=== PATIENT | female | born 1990 | race Caucasian/White ===

== ENCOUNTER 2020-01-23 22:48 | Emergency (ER) | payer SELFPAY ==
[2020-01-23 23:01] VITALS: BP 137/93; PULSE 89; RESP 18; TEMP 36.9; O2SAT 98; BMI 31.7
--- NOTE | 2020-01-23 23:16 | XR_ITS ---
WS: [id number] Chest 2 views, 01/24/2020 Clinical Data: cough Comparison: PA and lateral chest, 03/21/2015. Findings: No nodules, masses or effusions are seen. The heart is normal. The pulmonary vascularity is not increased. No pneumonia or pneumothorax is seen. XR/XR chest 2V* [id number] Impression: Negative chest.
--- NOTE | 2020-01-23 23:19 | ED_ITS ---
Entered by Mariah Mcginnis, acting as scribe for Lit Romero MD HPI - General Adult General: Chief complaint: General Medical Stated complaint: cough Time Seen by Provider: 01/23/20 23:09 Source: patient Mode of arrival: ambulatory History of Present Illness: HPI narrative: 29 y/o female presents to the ED for cough, sore throat and N/V. Pt states her daughter has been sick with the same symptoms for the past several days. She is concerned about having the Flu and would like to be tested. She has had intermittent fevers and chills and increasing lethargy. complaint: Cough, sore throat Onset (ago): day(s) Severity: mild Quality: aching Relieving factors: none Associated symptoms: Reports cough, fevers/chills and nausea; Deny chest pain, dyspnea or rash Review of Systems Const: Reports: chills and body aches; Denies: fever or change in appetite Eyes: Denies: blurry vision or eye discomfort ENMT: Reports: throat pain; Denies: dental pain Card: Denies: chest pain Resp: Denies: shortness of breath GI: Reports: nausea; Denies: abdominal pain or diarrhea : Denies: painful urination Musc: Denies: neck pain or back pain Skin/Breast: Denies: rash Psych: Denies: depression Diego/Lymph: Denies: easy bruising All/Imm: Denies: hives PFSH ED PFSH: Social History Smoking and tobacco status: current every day smoker Female Reproductive History: Date of last menstrual period: 12/25/19 Physical Exam Const: COMMON NORMALS: no apparent distress and oriented x3 HENMT: COMMON NORMALS: normocephalic and head/scalp atraumatic HEAD & SCALP: normocephalic and atraumatic Eye: COMMON NORMALS: PERRL and EOMs intact bilaterally PUPIL: Yes PERRL Neck/C-Spine: COMMON NORMALS: full ROM and supple Chest: COMMONS NORMALS: inspection of chest normal and palpation of chest normal Resp: COMMON NORMALS: normal respiratory effort, no retractions, no use of accessory muscles and clear to auscultation bilaterally AUSCULTATION: clear to auscultation bilaterally Cardio: COMMON NORMALS: regular rate, regular rhythm and no murmurs RATE: regular rate RHYTHM: regular rhythm GI: COMMON NORMALS: normal to inspection, nondistended, normoactive bowel sounds, soft to palpation, non-tender and no masses PALPATION: Yes soft Extremity: COMMON NORMALS: normal to inspection and full ROM Neuro: COMMON NORMALS: oriented x3, moves all extremities and no focal motor deficits Psych: COMMON NORMALS: mental status grossly normal, thought process normal and cooperative THOUGHT PROCESS: normal thought process Skin: COMMON NORMALS: no rashes or lesions noted and no wounds GENERAL SKIN EXAM: no rashes or lesions noted Course Vital Signs: Vital signs: Vital Signs Temperature 98.5 F 01/23/20 23:01 Pulse Rate 89 01/23/20 23:01 Respiratory Rate 18 01/23/20 23:01 Blood Pressure 137/93 01/23/20 23:01 Pulse Oximetry 98 01/23/20 23:01 MDM - General Adult MDM Narrative: Medical decision making narrative: Patient presents here with cough congestion sore throat that is likely viral in origin. Her x-ray here shows no pneumonia and her flu is negative. Exam is benign and she has no signs of strep. Patient is stable for discharge and is to follow-up with primary care doctor. Lab Data: Labs: Lab Results 01/23/20 Range/Units 23:03 Influenza Type A A g Negative (Negative) POC Influenza B Ag Negative (Negative) Imaging Data^: CXR: Attestation: I personally reviewed and interpreted this imaging study as follows: My impression: no acute abnormality Discharge Plan Discharge Patient Disposition: Home, Self-Care Clinical Impression: Upper respiratory infection Qualifiers: URI type: unspecified URI Qualified Code(s): J06.9 - Acute upper respiratory infection, unspecified Condition: Stable Discharge Orders: Discharge Order (Routine); Ordered 01/24/20 Ordered By: Lit Romero Referrals: Shlomo Taylor MD [Primary Care Provider] - 4-7 days Discharge Diet: Advance as tolerated Discharge Activity: Resume usual activity Patient Instructions: Upper Respiratory Infection (ED) Coding Level of Care Code ED Mosaic Technician for Chg Fwd Exam Comprehensive The documentation recorded by the Ras blackwell Ashley, accurately reflects the service I personally performed and the decisions made by ca, Lit Romero MD Jan 23, 2020 22:48
[2020-01-23 23:43] LABS: Influenza A by IFA Negative (Negative); Influenza B by IFA Negative (Negative)
[2020-01-24] MEDS: dexamethasone 10 mg/mL INJ IM (00:16)
== END 2020-01-24 00:40 | disposition home or self-care (01) ==
PROVIDERS: Nurse Practitioner Family; Emergency Provider Emergency Medicine; Family Provider Family Medicine; PCP Family Medicine
DX: J06.9 Acute upper respiratory infection, unspecified (principal); F17.200 Nicotine dependence, unspecified, uncomplicated
CPT/HCPCS: 12345; 71046; 87804; 96372; 99281; 99283; J1100

== ENCOUNTER 2021-09-10 20:59 | Emergency (ER) | payer MEDICAID, SELFPAY ==
[2021-09-10 21:10] VITALS: BP 107/64; PULSE 97; RESP 18; TEMP 36.2; O2SAT 98; BMI 32.5
--- NOTE | 2021-09-10 21:20 | ED_ITS ---
Documented by User: JODI Valencia 09/10/21 23:54 HPI - Extremity Problem General: Chief complaint: Extremity Injury, Lower Stated complaint: Injury Left leg Time Seen by Provider: 09/10/21 21:20 History of Present Illness: HPI Narrative: 31-year-old female comes in today with injury to the left ankle. Patient was rollerskating and injured her left ankle. Ankle has some bruising to the medial aspect of the malleus, pulses are intact, sensation is intact. Review of Systems General: Reports: 10 or more systems reviewed and unremarkable except in HPI and below Musc: Reports: other (Left ankle injury.) [facility] ED PFSH: Social History Smoking and tobacco status: current every day smoker Female Reproductive History: Date of last menstrual period: 12/25/19 Physical Exam Const: COMMON NORMALS: no acute distress and patient oriented x3 GENERAL APPEARANCE: cooperative HENMT: COMMON NORMALS: normocephalic and Normal external nose present HEAD & SCALP: normal to inspection and normocephalic NOSE: Normal external nose present MOUTH: Normal oral and palatal mucosa present Eye: GENERAL EYE: appearance normal, both eyes and all related structures Neck/C-Spine: COMMON NORMALS: full ROM Chest: COMMONS NORMALS: normal inspection of the chest Resp: COMMON NORMALS: normal respiratory effort EFFORT & INSPECTION: Yes able to speak in complete sentences Cardio: COMMON NORMALS: regular rate and regular rhythm RATE: regular rate RHYTHM: regular rhythm GI: COMMON NORMALS: non-tender Back/Pelvis: COMMON NORMALS: thoracic and lumbar spine normal to inspection Extremity: NARRATIVE EXTREMITY EXAM: Deformity noted to the left medial malleus of the ankle. Pulses are intact. Bruising is noted. Neuro: COMMON NORMALS: patient oriented x3 and moves all extremities Psych: COMMON NORMALS: mental status grossly normal and cooperative Skin: COMMON NORMALS: no rashes or lesions noted GENERAL SKIN EXAM: no rashes or lesions noted Procedures Orthopedic Fracture Reduction Fracture #1: Time Out Performed: Yes Side: left Fracture Reduction Location: tibia Analgesia: procedural sedation Technique: direct manipulation Post Reduction X-rays Demonstrate: anatomical reduction Post-reduction neuro exam: intact Post-reduction vascular exam: intact Splint Applied: Yes Patient Tolerated Procedure: well Course ED course: 2344, under conscious sedation patient's left ankle joint was manipulated and reduced successfully. Dr. Renteria was present during the conscious sedation and reduction of the joint. Vital Signs: Vital signs: Vital Signs Temperature 97.1 F L 09/10/21 21:10 Pulse Rate 90 09/10/21 23:45 Respiratory Rate 16 09/10/21 23:45 Blood Pressure 122/64 09/10/21 23:45 Pulse Oximetry 97 09/10/21 23:45 MDM - Extremity (Nontraumatic) MDM Narrative: Medical decision making narrative: Patient comes in today with injury to the left ankle. On exam patient has a deformity to the left ankle on the medial side. Pulses are intact sensation is intact. Differential diagnosis includes fracture, dislocation, swelling, sprain. X-ray noted a fracture of the posterior tibia, distal fibula with subluxation of the tibiotalar joint. Reviewed exam with Dr. Renteria who agreed to plan for reduction of the joint, splinting of the extremity and follow-up with orthopedist. We were able to reduce the joint with minimal effort under conscious sedation. Repeat x-ray noted reduction of the joint. Patient had significant improvement of pain control after reduction of the joint. Neurovascular remained intact. Case management was consulted for follow-up with orthopedist. Patient reported understanding of care plan along with spouse. Discharge Plan Discharge Patient Disposition: Home Clinical Impression: Fracture tibia/fibula Qualifiers: Encounter type: initial encounter Fracture type: closed Laterality: left Qualified Code(s): S82.202A - Unspecified fracture of shaft of left tibia, initial encounter for closed fracture Condition: Stable Prescriptions: New hydrocodone-acetaminophen 5-325 mg tablet 1 tab PO Q6H PRN (Reason: pain (scale score 7-10)) Qty: 14 RF: 0 Discharge Orders: Discharge ED (Routine); Ordered 09/10/21 Ordered By: Kiran Mayer Referrals: Shlomo Taylor MD [Primary Care Provider] - Discharge Diet: Usual diet Discharge Activity: Increase activity as tolerated Patient Instructions: Ankle Fracture (ED), Opioid Safety Activity Restrictions/Additional Instructions: Keep splint clean and dry. Use acetaminophen and ibuprofen to control pain. Use hydrocodone as needed for uncontrolled pain. Follow-up with orthopedist for further treatment. Case management will contact you with the appointment for follow-up. Follow-up with primary care as needed. Coding Level of Care Code ED Websphere Portal Architect for Chg Fwd Exam Comprehensive Documented by User: Wagner Renteria, 09/11/21 02:52 HPI - Extremity Problem General: Chief complaint: Extremity Injury, Lower Stated complaint: Injury Left leg Time Seen by Provider: 09/10/21 21:20 PFSH ED PFSH: Social History Smoking and tobacco status: current every day smoker Course Vital Signs: Vital signs: Vital Signs Temperature 97.1 F L 09/10/21 21:10 Pulse Rate 90 09/10/21 23:45 Respiratory Rate 16 09/10/21 23:45 Blood Pressure 122/64 09/10/21 23:45 Pulse Oximetry 97 09/10/21 23:45 MDM - Extremity (Nontraumatic) MDM Narrative: Medical decision making narrative: This patient was originally seen by JODI Bennett. I agree with his history, evaluation, and treatment. Discharge Plan Discharge Patient Disposition: Home Clinical Impression: Fracture tibia/fibula Qualifiers: Encounter type: initial encounter Fracture type: closed Laterality: left Qualified Code(s): S82.202A - Unspecified fracture of shaft of left tibia, initial encounter for closed fracture Condition: Stable Prescriptions: New hydrocodone-acetaminophen 5-325 mg tablet 1 tab PO Q6H PRN (Reason: pain (scale score 7-10)) Qty: 14 RF: 0 Discharge Orders: Discharge ED (Routine); Ordered 09/10/21 Ordered By: Kiran Mayer Referrals: Shlomo Taylor MD [Primary Care Provider] - Discharge Diet: Usual diet Discharge Activity: Increase activity as tolerated Patient Instructions: Ankle Fracture (ED), Opioid Safety Activity Restrictions/Additional Instructions: Keep splint clean and dry. Use acetaminophen and ibuprofen to control pain. Use hydrocodone as needed for uncontrolled pain. Follow-up with orthopedist for further treatment. Case management will contact you with the appointment for follow-up. Follow-up with primary care as needed. Coding Level of Care Code ED Websphere Portal Architect for Angle Fwtaj Exam Comprehensive
--- NOTE | 2021-09-10 21:22 | XRR_ITS ---
PROCEDURE INFORMATION: Exam: XR Left Ankle Exam date and time: 09/10/2021 9:22 PM Age: 31 years old Clinical indication: Injury or trauma; Blunt trauma; Ankle; Left; Injury details: Fall while roller skating TECHNIQUE: Imaging protocol: XR Left ankle. Views: 3 or more views. COMPARISON: No relevant prior studies available. FINDINGS: Bones/joints: There is short oblique fracture of the distal shaft of the left fibula with some lateral displacement and posterior angulation. There is widening of the tibiofibular joint. The talus is slightly displaced posteriorly and laterally. There is comminuted fracture involving the posterior and lateral aspect of the distal tibia probably also involving the tibial plafond and. Talar dome is intact. Soft tissues: Normal. XR/XR ankle LT min 3V* [id number] IMPRESSION: Fractures of the distal left tibia and fibula with posterolateral subluxation of the tibial talar joint. Radiation Dose CTDIVOL = (mGy): DLP = (mGy-cm)
--- NOTE | 2021-09-10 21:22 | XRR_ITS ---
PROCEDURE INFORMATION: Exam: XR Left Tibia and Fibula Exam date and time: 09/10/2021 9:22 PM Age: 31 years old Clinical indication: Injury or trauma; Blunt trauma; Lower leg; Left; Injury details: Fall while roller skating. ; Additional info: Ankle fracture TECHNIQUE: Imaging protocol: XR Left tibia and fibula. Views: 2 views. COMPARISON: No relevant prior studies available. FINDINGS: Bones/joints: There is short oblique fracture through the middle of the distal 3rd of the left fibula with mild lateral displacement. There is what appears to be a pilon type fracture of the distal tibia not fully imaged on these views with some dorsal and lateral subluxation of the talus and widening of the distal tibiofibular joint. Please see the report of views of the ankle which are pending at this time. Soft tissues: Swelling XR/XR tibia fibula LT 2V [id number] IMPRESSION: Fractures of the distal left tibia and fibula. Radiation Dose CTDIVOL = (mGy): DLP = (mGy-cm)
[2021-09-10 21:29] VITALS: PULSE 78
[2021-09-10] MEDS: sodium chloride 0.9% 500 ML 999 ML IV (21:38)
[2021-09-10] MEDS: ondansetron 2 mg/ML SDV 2 mL 4 MG IVP ×2 (21:38→23:11)
[2021-09-10] MEDS: ketorolac 30 mg/mL INJ 15 MG IVP (21:39)
[2021-09-10 21:40] VITALS: RESP 20; O2SAT 99
[2021-09-10] MEDS: morphine 4 mg/mL SDV 1 mL IVP (21:40)
[2021-09-10] MEDS: midazolam 1 mg/mL INJ 2 mL 2 MG IVP (23:13)
[2021-09-10 23:20] VITALS: BP 137/75; PULSE 84; RESP 18; O2SAT 98
[2021-09-10 23:28] VITALS: BP 131/77; PULSE 71; RESP 16
--- NOTE | 2021-09-10 23:32 | XRR_ITS ---
PROCEDURE INFORMATION: Exam: XR Left Ankle Exam date and time: 09/10/2021 11:32 PM Age: 31 years old Clinical indication: Injury or trauma; Fall; Fracture, traumatic; Displaced; Fibula and tibia; Left; Patient HX: Check S/P reduction. ; Additional info: Post reduction TECHNIQUE: Imaging protocol: XR Left ankle. Views: 1 or 2 views. COMPARISON: CR (LOW EXM, ) 09/10/2021 9:30 PM FINDINGS: Limitations: Examination is made through a semi opaque splint which obscures fine bone detail. Bones/joints: Fractures of the distal left tibia and fibular again identified. There is improved position and alignment of the bones compared with the previous examination. Subluxation of the talus has been reduced. Soft tissues: Normal. XR/XR ankle LT 2V [id number] IMPRESSION: Fractures of the distal left tibia and fibula in splint. Radiation Dose CTDIVOL = (mGy): DLP = (mGy-cm)
[2021-09-10 23:45] VITALS: BP 122/64; PULSE 90; RESP 16; O2SAT 97
[2021-09-10] MEDS: HYDROcodone-acetaminophen 5-325 mg Tablet 2 TAB PO (23:55)
--- NOTE | 2021-09-13 09:07 | DCPLANNER ---
manager of tax had message to schedule a follow up appointment for patient with ortho. manager of tax called the ortho clinic, spoke with Alysha, gave clinic patients information. manager of tax was told that patients information would be printed and reviewed. Clinic will call patient with appointment information.
--- NOTE | 2021-09-16 15:22 | DCPLANNER ---
Patient had a follow up appointment scheduled for 09.15.[address] Ortez at [facility] - patient did attend appointment.
== END 2021-09-11 00:01 | disposition home or self-care (01) ==
PROVIDERS: Emergency Provider Nurse Practitioner Family; PCP Family Medicine
DX: S82.845A Nondisplaced bimalleolar fracture of left lower leg, initial encounter for closed fracture (principal); F17.210 Nicotine dependence, cigarettes, uncomplicated; X58.XXXA Exposure to other specified factors, initial encounter; Y93.51 Activity, roller skating (inline) and skateboarding
CPT/HCPCS: 27810; 73590; 73600; 73610; 96374; 96375; 96376; 99284; E0114; J1885; J2250; J2270; J2405; J3490; J7040

== ENCOUNTER → 2021-09-15 00:01 | Outpatient (BNVA) | payer MEDICAID, SELFPAY | PROVIDERS: PCP Family Medicine; Visit Provider Podiatrist Foot & Ankle Surgery | DX: Z20.822 Contact with and (suspected) exposure to COVID-19 (principal) | CPT/HCPCS: 87635 ==

== ENCOUNTER 2021-09-17 08:42 | Day surgery (SDC) | payer MEDICAID, SELFPAY ==
[2021-09-16 16:00] VITALS: BMI 30.9
[2021-09-17] VITALS (11 sets, daily range): BP systolic 111–143; BP diastolic 72–86; PULSE 70–103; RESP 14–21; TEMP 36.3–36.6; O2SAT 93–100
--- NOTE | 2021-09-17 | SCC_ITS ---
Procedure Done: Open reduction internal fixation left trimalleolar Ankle fracture CPT code 39449 33 seconds of fluoroscopic guidance, for a cumulative dose of 0.797 mGy, was provided to Dr. Ortez by the radiology department. C-arm images of the left ankle were saved for the patient's permanent record. [facility]
--- NOTE | 2021-09-17 09:56 | ANES.PREANE2 ---
Pre-Anesthetic Assessment Pre-Anesthetic Assessment: Height/Weight: Height 1.63 m Weight 81.647 kg Temp Pulse Resp BP Pulse Ox 97.4 F L 82 17 143/86 100 09/17/21 08:55 09/17/21 08:55 09/17/21 08:55 09/17/21 08:55 09/17/21 08:55 Preop Diagnosis: Left trimalleolar ankle fracture Proposed Procedure: Operation Date: 09/17/21 10:30 Proposed Procedures p ORIF trimalleolar Ankle 35976 S82.852B(Left) - Osmel Ortez DPM Familial anesthetic complications: None Was Beta Miky taken within 24 hours: N/A Was Clonidine taken within 24 hours: N/A Last intake: Intake Last Liquid Date 09/16/21 Last Liquid Time 22:00 Last Solid Date 09/16/21 Last Solid Time 20:00 Social: Social History: No alcohol and No tobacco Exam: Pre-Anes Outpt Exam: alert, oriented x 3, clear to auscultation bilaterally and regular rate & rhythm Airway: Cervical ROM: WNL MP: 2 Dentition: Full Pulmonary: Comments: covid in early august, states no residual symptoms. Illness was mild per patient Anesthetic Plan: ASA status: 2 Anesthesia: General and Regional (specify below) Risk of > 500 ml blood loss (7ml/kg in children): No PFSH Anesthesia PFSH: Social History Smoking and tobacco status: former smoker Female Reproductive History: Date of last menstrual period: 12/25/19 Data Anesthesia Cardiac Studies: No Data to Display
--- NOTE | 2021-09-17 09:57 | ANES.PROC ---
Anesthesia Procedures Procedure/Date: 09/17/21 Nerve Block ^: Nerve Block 1: Main Anesthesia: general anesthesia Consent: requested by attending/covering physician, from patient, risks and benefits reviewed and patient agrees to proceed Nerve block location: popliteal (R) Anesthesia monitors applied: pulse oximetry, EKG, BP cuff and oxygen Nerve block position: supine Anesthetic Used: ropivicaine 0.5% and with decadron Amount of anesthesia used (mL): 30 Ultrasound used to: recognize landmarks Nerve Stimulator Used?: No Interscalene/Femoral BLK: 4 stimuplex 21 g needle used for position and inplane approach, visualize local anesthetic spread and no vascular puncture identified Injection: neg aspiration of heme Patient Tolerated Procedure: well Complications: none
--- NOTE | 2021-09-17 10:32 | P.HPUD_ITS ---
Surgery/Procedure H&P Update DATE OF PROCEDURE: September 17, 2021 DATE H&P PERFORMED: 09/15/21 H&P UPDATE INFORMATION: I have reviewed H&P completed within last 30 days, I have examined patient prior to procedure, No changes to prior documentation and H&P is in [facility] EMR on date indicated PREOP DIAGNOSIS: Left trimalleolar ankle fracture PLANNED PROCEDURE: Operation Date: 09/17/21 10:30 Proposed Procedures p ORIF trimalleolar Ankle 81076 S82.852B(Left) - Osmel Ortez DPM
[2021-09-17 11:05] LABS: OR HCG Qualitative Urine Negative (Negative)
--- NOTE | 2021-09-17 12:22 | XR_ITS ---
WS: [id number] Left ankle, 3 views, 09/17/2021 Clinical Data: post op Comparison: Right ankle, 09/10/2021. Findings: There is internal fixation with a plate and screws with fracture of the distal left fibula. There are radiolucent bands extending from the fibula to the tibia aiding in the reduction of the fra cture of the posterior tibia. XR/XR ankle LT min 3V* [id number] Impression: Internal fixation of fractures of distal left tibia and fibula.
--- NOTE | 2021-09-17 12:27 | PM.OP ---
Operative Report Date of procedure: September 17, 2021 Pre-op Diagnosis: Left trimalleolar ankle fracture Post-op diagnosis: same Post-op Findings: None Procedure Done: Open reduction internal fixation left trimalleolar Ankle fracture CPT code 94126 Implants: Bina one third tubular plate, Bina 3.5 mm locking and nonlocking screws, Arthrex tight rope XP x2, 2-0 Vicryl, 3-0 Vicryl, skin pablo. Specimens removed/disposition: None Pathology: none sent Surgeon: Osmel Ortez D.P.M. Clinical Trial Data Manager: Harish Anesthesia: General Estimated blood loss: 10 Tourniquet time: 52 IV fluids: 0 Urine output: 0 Complications: None Findings: Anatomically reduced left ankle Condition: stable Disposition: PACU Brief History: Patient sustained a left trimalleolar ankle fracture equivalent with displacement of the talus laterally, Brice Espinoza B fracture and posterior mall fracture. Recommended open reduction internal fixation of the left ankle fracture. Risks include pain, bleeding, numbness, infection, hardware irritation, hardware failure, delayed union, malunion, nonunion, chronic swelling, high likelihood of posttraumatic arthritis and decreased range of motion in the future and need for further surgical intervention. Procedure: Under mild sedation the patient was brought to the operating room and placed on the operating table in supine position. A popliteal block to the left lower extremity performed per anesthesia preoperatively. Timeout was performed and general anesthesia was then administered by the anesthesia service. Local anesthesia injected by myself 10 cc of 0.5 to Marcaine plain and a saphenous nerve block fashion. Well-padded pneumatic tourniquet applied high calf to the left lower extremity. Left lower extremity was then scrubbed, prepped and draped utilizing normal aseptic technique. This was wrapped with an Esmarch bandage and a tourniquet inflated to 250 mmHg. Attention was directed to the left lateral ankle where the lateral malleolus was palpated directly over the lateral malleolus a linear longitudinal incision was made with #15 blade with dissection carried down to the layer of periosteum utilizing a combination of blunt and sharp technique. Care was taken to retract and preserve neurovascular and tendinous structures. All bleeders were ligated and cauterized as necessary. Fibular fracture was distracted and curettage of hematoma this was flushed with saline solution followed by reduction and temporary stabilization with [id number] reduction forceps. Fibula was out to length and ankle mortise congruent confirmed on intraoperative fluoroscopy. One third tubular plate with a combination of locking and nonlocking screws utilizing standard AO technique for fixation of the fibula fracture maintaining anatomic reduction. Excellent bony apposition and compression noted. No hardware violating the ankle mortise confirmed with fluoroscopy in all 3 planes. Once the fibula was out to length and the rotated into reduction the ankle mortise was congruent and the posterior malleolus fracture was reduced. There is still instability at the syndesmosis with cotton hook test this was fixated utilizing dual tight rope for dynamic internal fixation. Tight rope was Arthrex XP x2. Range of motion was smooth with approximately 10 degrees of dorsiflexion intraoperatively and 45 degrees of plantarflexion without crepitus. Final imaging confirmed anatomic alignment of the left ankle. Incision was flushed with copious amounts of sterile saline solution and closed in a layered fashion utilizing 2-0 Vicryl periosteum, 3-0 Vicryl subcutaneous tissue and skin pablo at. Incision was then dressed with Adaptic, sterile 4 x 4, Kerlix, Mumtaz wrap and cam boot was applied. Tourniquet was deflated and a prompt hyperemic response was noted to the distal digits of the left foot. Patient tolerated the procedure well and was transferred to the PACU with vital signs stable vascular status intact. Following a period of postoperative monitoring she will be discharged home is to remain strict nonweightbearing to the left lower extremity was prescribed Percocet 10/325 mg to be taken every 4-6 hours as needed for pain. Will be following up in podiatry clinic next week for nurse visit dressing change 09/24/2021. Was given my cell phone number to contact me with any postoperative questions or concerns.
[2021-09-17] MEDS: fentaNYL 50 mcg/mL INJ 2mL IVP ×2 (12:29→12:34)
[2021-09-17] MEDS: ondansetron 2 mg/ML SDV 2 mL 4 MG IVP ×2 (12:32→13:13)
[2021-09-17] MEDS: metoclopramide 5 mg/mL SDV 2 mL 10 MG IVP (13:31)
--- NOTE | 2021-09-17 13:43 | SUR.PHASEI ---
Patient struggling with nausea. Two medications used for treatment in addition to changing from water to sprite. Patient is tolerating sprite and crackers at this time.
[2021-09-17] MEDS: sodium chloride 0.9% 1,000 ML 30 ML IV (13:55)
--- NOTE | 2021-09-17 17:22 | ANE.PACU2 ---
Inpatient post-anesthesia follow up: Airway intact: Yes Vital signs: Temperature 97.9 F Pulse Rate 80 Respiratory Rate 15 Blood Pressure 112/76 Pulse Oximetry 96 Oxygen Delivery Me thod Room Air Oxygen Flow Rate 8 Fraction of Inspir ed Oxygen Hydration adequate: Yes Nausea and vomiting: No Pain level: 1 Mental status: Baseline
== END 2021-09-17 14:02 | disposition home or self-care (01) ==
PROVIDERS: PCP Family Medicine; Visit Provider Podiatrist Foot & Ankle Surgery
PROC: (CPT 27822; principal; 2021-09-17 10:20)
DX: S82.852A Displaced trimalleolar fracture of left lower leg, initial encounter for closed fracture (principal); X50.1XXA Overexertion from prolonged static or awkward postures, initial encounter; Y93.51 Activity, roller skating (inline) and skateboarding; Y92.838 Other recreation area as the place of occurrence of the external cause; Z87.891 Personal history of nicotine dependence
CPT/HCPCS: 27822; 64450; 73610; 76000; 76942; 84703; 96372; C1713; J0690; J1100; J2250; J2405; J2704; J2710; J2765; J2795; J3010; J3490; J7030

== ENCOUNTER → 2021-09-30 14:47 | Outpatient (BNVA) | payer MEDICAID, SELFPAY | PROVIDERS: PCP Family Medicine; Visit Provider Podiatrist Foot & Ankle Surgery | DX: Z47.89 Encounter for other orthopedic aftercare (principal); S82.832D Other fracture of upper and lower end of left fibula, subsequent encounter for closed fracture with routine healing; X58.XXXD Exposure to other specified factors, subsequent encounter | CPT/HCPCS: 73610 ==

== ENCOUNTER → 2021-10-14 11:22 | Outpatient (BNVA) | payer MEDICAID, SELFPAY | PROVIDERS: PCP Family Medicine; Visit Provider Podiatrist Foot & Ankle Surgery | DX: Z47.89 Encounter for other orthopedic aftercare (principal); S82.852D Displaced trimalleolar fracture of left lower leg, subsequent encounter for closed fracture with routine healing; V00.128D Other non-in-line roller-skating accident, subsequent encounter | CPT/HCPCS: 73610 ==

== ENCOUNTER → 2021-10-25 15:43 | Outpatient (BNVA) | payer MEDICAID, SELFPAY | PROVIDERS: PCP Family Medicine; Visit Provider Podiatrist Foot & Ankle Surgery | DX: Z47.89 Encounter for other orthopedic aftercare (principal) | CPT/HCPCS: 73610 ==

== ENCOUNTER → 2021-11-17 09:05 | Outpatient (BNVA) | payer MEDICAID, SELFPAY | PROVIDERS: PCP Family Medicine; Visit Provider Podiatrist Foot & Ankle Surgery | DX: Z98.890 Other specified postprocedural states (principal) | CPT/HCPCS: 73610 ==

== ENCOUNTER 2021-11-17 10:31 | Outpatient (CLI) | payer MEDICAID, SELFPAY | END 2021-11-17 10:32 | disposition home or self-care (01) | LOC: SPT 10:33 | PROVIDERS: PCP Family Medicine; Visit Provider Podiatrist Foot & Ankle Surgery | DX: Z47.89 Encounter for other orthopedic aftercare (principal) | CPT/HCPCS: 97760; L1902 ==

== ENCOUNTER → 2021-12-22 08:00 | Outpatient (BNVA) | payer MEDICAID, SELFPAY | PROVIDERS: PCP Family Medicine; Visit Provider Podiatrist Foot & Ankle Surgery | DX: Z98.890 Other specified postprocedural states (principal) | CPT/HCPCS: 73610 ==

== ENCOUNTER 2022-09-04 14:18 | Emergency (ER) | payer MEDICAID, SELFPAY ==
[2022-09-04 14:31] VITALS: BMI 34.0
[2022-09-04 14:37] VITALS: BP 137/74; PULSE 82; RESP 18; TEMP 36.4; O2SAT 98
--- NOTE | 2022-09-04 15:37 | ED_ITS ---
HPI - Female Genitourinary General: Chief complaint: Vaginal Bleeding Stated complaint: Vaginal bleeding for 3 weeks Time Seen by Provider: 09/04/22 15:17 History of Present Illness: This patient is a 32-year-old presenting with vaginal bleeding. She reports a history of very heavy periods and her doctor recommended a Nexplanon implant to help control these heavy periods. She had the Nexplanon implant placed on August 04. On August 18 she started spotting and about a week later started having heavy bleeding. The bleeding has progressively worsened over the past 2 weeks and she is now passing clots and going through a pad every hour. She has a history of anemia which has been because of her heavy bleeding. She denies any other vaginal discharge or lesions. She does have cramping typical of a heavy period. Her last period was around 27 July. She denies fevers, chills, vomiting, diarrhea, urinary symptoms. She has been feeling lightheaded and weak. Associated symptoms: Deny abdominal pain, headache(s) or nausea Date of Last Menstrual Period: 12/25/19 Review of Systems Const: Denies: fever(s), chills, fatigue or malaise Eyes: Denies: change in vision ENMT: Denies: odynophagia Card: Denies: chest pain or swelling of feet/ankles Resp: Denies: dyspnea, productive cough or non-productive cough GI: Denies: abdominal pain, nausea or vomiting : Reports: vaginal bleeding, dysmenorrhea and change in menstrual flow Musc: Denies: neck pain or back pain Skin/Breast: Denies: rash Neuro: Reports: dizziness; Denies: headache(s), numbness in extremities or weakness in extremities Diego/Lymph: Denies: easy bruising or easy bleeding PFS ED PFSH: Social History Smoking and tobacco status: former smoker Female Reproductive History: Date of last menstrual period: 12/25/19 Physical Exam Const: COMMON NORMALS: no acute distress, patient oriented x3, no limitations and alert GENERAL APPEARANCE: cooperative and comfortable HENMT: HEAD & SCALP: normal to inspection FACE & SINUS: normal facial exam Eye: GENERAL EYE: appearance normal, both eyes and all related structures Neck/C-Spine: COMMON NORMALS: supple, no meningeal signs and no JVD Chest: COMMONS NORMALS: normal inspection of the chest Resp: COMMON NORMALS: normal respiratory effort, No use of accessory muscles and clear to auscultation bilaterally AUSCULTATION: clear to auscultation bilaterally Cardio: COMMON NORMALS: no JVD, regular rate, regular rhythm and No murmurs present (Cardio) RATE: regular rate RHYTHM: regular rhythm GI: COMMON NORMALS: Normal to inspection, nondistended, normoactive bowel sounds present, Soft to palpation and non-tender INSPECTION: Yes normal to inspection AUSCULTATION: Yes normoactive bowel sounds PALPATION: Yes Soft to palpation and Yes Tenderness to palpation present (GI) (Mild, suprapubic) Back/Pelvis: COMMON NORMALS: thoracic and lumbar spine normal to inspection Extremity: COMMON NORMALS: normal to inspection Neuro: COMMON NORMALS: patient oriented x3, moves all extremities, no focal motor deficits and no sensory deficits noted SENSORIUM/ORIENTATION: Yes alert MENINGEAL SIGNS: Yes no meningeal signs Psych: COMMON NORMALS: mental status grossly normal, cooperative and normal affect Skin: COMMON NORMALS: no rashes or lesions noted and turgor normal GENERAL SKIN EXAM: no rashes or lesions noted and turgor normal Course Vital Signs: Vital signs: Vital Signs Temperature 97.6 F 09/04/22 14:37 Pulse Rate 82 09/04/22 14:37 Respiratory Rate 18 09/04/22 14:37 Blood Pressure 137/74 09/04/22 14:37 Pulse Oximetry 98 09/04/22 14:37 Oxygen Delivery Me thod 09/04/22 14:37 MDM - Female Medical Decision Making Patient with history of heavy vaginal bleeding with her periods. Presents today with worsening symptoms after having a Nexplanon placed a month ago. She symptomatic with lightheadedness and fatigue. Blood counts pending. test negative. Hemoglobin normal. CO2 is slightly low but other labs are completely normal. Counseled patient. She is feeling better knowing that the blood counts are normal. She will follow-up with Dr. Taylor tomorrow. Lab Data : 09/04/22 15:44 09/04/22 15:44 Laboratory Results WBC 8.7 10^3/uL (4.0-10.0) 09/04/22 15:44 RBC 5.09 10^6/uL (4.1-5.3) 09/04/22 15:44 Hgb 12.5 g/dL (11.5-15.3) 09/04/22 15:44 Hct 40.5 % (37.0-47.0) 09/04/22 15:44 MCV 79.6 fl (81-99) L 09/04/22 15:44 MCH 24.6 pg (28.0-34.0) L 09/04/22 15:44 MCHC 30.9 g/dL (30.0-36.0) 09/04/22 15:44 RDW 22.0 % (12.1-15.1) H 09/04/22 15:44 Plt Count 333 10^3/cmm (130-400) 09/04/22 15:44 MPV 10.4 fL (7.4-10.4) 09/04/22 15:44 Neut % (Auto) 61.8 % 09/04/22 15:44 Lymph % (Auto) 26.9 % 09/04/22 15:44 [place] % (Auto) 7.6 % 09/04/22 15:44 Eos % (Auto) 2.6 % 09/04/22 15:44 Baso % (Auto) 0.8 % 09/04/22 15:44 Neut # (Auto) 5.38 10^3/uL (1.8-7.7) 09/04/22 15:44 Lymph # (Auto) 2.4 10^3/uL (0.8-4.8) 09/04/22 15:44 [place] # (Auto) 0.7 10^3/uL (0.2-0.9) 09/04/22 15:44 Eos # (Auto) 0.2 10^3/uL (0.0-0.8) 09/04/22 15:44 Baso # (Auto) 0.1 10^3/uL (0.0-0.1) 09/04/22 15:44 Nucleated RBC % (auto) 0 % 09/04/22 15:44 Nucleated RBCs # 0.0 /100WBC 09/04/22 15:44 Sodium 133 mmol/L (136-145) L 09/04/22 15:44 Potassium 4.1 mmol/L (3.5-5.1) 09/04/22 15:44 Chloride 105 mmol/L (98-107) 09/04/22 15:44 Carbon Dioxide 17 mmol/L (22-29) L 09/04/22 15:44 Anion Gap 15.1 (5-19) 09/04/22 15:44 BUN 9 mg/dL (6-20) 09/04/22 15:44 Creatinine 0.6 mg/dL (0.5-0.9) 09/04/22 15:44 GFR Calculation 115.9 mL/min (90-130) 09/04/22 15:44 Glucose 81 mg/dL (65-115) 09/04/22 15:44 Calculated Osmolality 274 mOsm/kg (285-295) L 09/04/22 15:44 Calcium 8.7 mg/dL (8.5-10.5) 09/04/22 15:44 Total Bilirubin 0.3 mg/dL (0.15-1.2) 09/04/22 15:44 AST 22 U/L (0-32) 09/04/22 15:44 ALT 21 U/L (0-33) 09/04/22 15:44 Alkaline Phosphatase 63 U/L (35-105) 09/04/22 15:44 Total Protein 6.5 g/dL (6.6-8.7) L 09/04/22 15:44 Albumin 3.7 g/dL (3.5-5.2) 09/04/22 15:44 Globulin 2.8 g/dL (1.3-4.6) 09/04/22 15:44 Ser , Semi-Qnt < 1.00 mIU/mL 09/04/22 15:44 Discharge Plan Discharge Patient Disposition: Home Clinical Impression: Dysfunctional uterine bleeding Condition: Stable Prescriptions: No Action (DME) ASO to the left ankle See Rx Instructions .Route .MEDSUPPLY Qty: 1 0RF Rx Instructions: As directed mupirocin 2 % ointment 1 applic topical TID Qty: 15 0RF aspirin 81 mg Tablet,Delayed Release (Dr/Ec) 81 mg PO DAILY Discharge Orders: Discharge ED (Routine); Ordered 09/04/22 Ordered By: Iesha Ramírez Referrals: Shlomo Taylor MD [Primary Care Provider] - Discharge Diet: Usual diet Discharge Activity: Resume usual activity Patient Instructions: Opioid Safety, Pain Management Activity Restrictions/Additional Instructions: Call Dr. Taylor tomorrow to discuss your ongoing symptoms. Return to the ER if worsening lightheadedness, shortness of breath or any other new concerns. Coding Level of Care Code ED Food And Beverage Director for [facility] Exam Comprehensive
[2022-09-04 16:09] LABS: Basophils # 0.1 10^3/uL (0.0-0.1); Basophils % 0.8 %; Eosinophils # 0.2 10^3/uL (0.0-0.8); Eosinophils % 2.6 %; Hematocrit 40.5 % (37.0-47.0); Hemoglobin 12.5 g/dL (11.5-15.3); Lymphocytes # 2.4 10^3/uL (0.8-4.8); Lymphocytes % 26.9 %; Mean Corpuscular HGB Conc 30.9 g/dL (30.0-36.0); Mean Corpuscular Hemoglobin 24.6 pg (28.0-34.0); Mean Corpuscular Volume 79.6 fl (81-99); Mean Platelet Volume 10.4 fL (7.4-10.4); Monocytes # 0.7 10^3/uL (0.2-0.9); Monocytes % 7.6 %; Neutrophils # 5.38 10^3/uL (1.8-7.7); Neutrophils % 61.8 %; Nucleated Red Blood Cells % 0 %; Platelet Count 333 10^3/cmm (130-400); Red Blood Count 5.09 10^6/uL (4.1-5.3); White Blood Count 8.7 10^3/uL (4.0-10.0)
[2022-09-04 16:34] LABS: Alanine Aminotransferase 21 U/L (0-33); Albumin Level 3.7 g/dL (3.5-5.2); Alkaline Phosphatase 63 U/L (35-105); Aspartate Amino Transferase 22 U/L (0-32); Blood Urea Nitrogen 9 mg/dL (6-20); Calcium 8.7 mg/dL (8.5-10.5); Carbon Dioxide 17 mmol/L (22-29); Chloride 105 mmol/L (98-107); Globulin 2.8 g/dL (1.3-4.6); Glomerular Filtration Rate 115.9 mL/min (90-130); Glucose 81 mg/dL (65-115); Osmolality Calculated 274 mOsm/kg (285-295); Sodium 133 mmol/L (136-145); Total Bilirubin 0.3 mg/dL (0.15-1.2); Total Protein 6.5 g/dL (6.6-8.7)
[2022-09-04 16:45] LABS: Anion Gap 15.1 (5-19)
[2022-09-04 16:46] LABS: HCG Quantitative < 1.00 mIU/mL; Potassium 4.1 mmol/L (3.5-5.1)
[2022-09-04 17:53] VITALS: BP 133/78; PULSE 82; RESP 16; O2SAT 95
== END 2022-09-04 17:54 | disposition home or self-care (01) ==
PROVIDERS: Emergency Provider Emergency Medicine; PCP Family Medicine
DX: N93.8 Other specified abnormal uterine and vaginal bleeding (principal); Z79.82 Long term (current) use of aspirin; Z87.891 Personal history of nicotine dependence
CPT/HCPCS: 36415; 80053; 84702; 85025; 99283

== ENCOUNTER → 2023-07-31 09:37 | Outpatient (BNVA) | payer MEDICAID, SELFPAY | PROVIDERS: PCP Family Medicine; Visit Provider Nurse Practitioner Family | DX: J30.2 Other seasonal allergic rhinitis (principal) | CPT/HCPCS: 87486; 87581; 87633 ==

== ENCOUNTER → 2023-10-27 11:05 | Outpatient (BNVA) | payer MEDICAID, SELFPAY | PROVIDERS: PCP Family Medicine; Visit Provider Nurse Practitioner Family | DX: J32.0 Chronic maxillary sinusitis (principal); R50.9 Fever, unspecified; J02.9 Acute pharyngitis, unspecified; R05.9 Cough, unspecified; J02.8 Acute pharyngitis due to other specified organisms; B96.89 Other specified bacterial agents as the cause of diseases classified elsewhere; J06.9 Acute upper respiratory infection, unspecified; J01.00 Acute maxillary sinusitis, unspecified | CPT/HCPCS: 87486; 87581; 87633 ==

== ENCOUNTER → 2023-12-29 11:00 | Outpatient (BNVA) | payer MEDICAID, SELFPAY | PROVIDERS: PCP Family Medicine; Visit Provider Nurse Practitioner Family | DX: N93.9 Abnormal uterine and vaginal bleeding, unspecified (principal); M25.50 Pain in unspecified joint; D50.9 Iron deficiency anemia, unspecified | CPT/HCPCS: 80053; 81000; 81025; 82607; 82728; 82746; 83036; 83550; 84146; 84439; 84443; 85025; 85651; 86038; 86140; 86200; 86431 ==

== ENCOUNTER 2024-01-01 15:50 | Outpatient (CLI) | payer MEDICAID, SELFPAY ==
--- NOTE | 2024-01-01 16:15 | US_ITS ---
WS: [id number] US pelv w/transvag [id number] HISTORY: N93.9 - Abnormal uterine and vaginal bleeding, unspecified COMPARISON: 07/03/2017 Uterus: 10.4 cm x 5.6 cm x 5.3 cm. Enlarged uterus. Myometrium is poorly visualized. No fibroids are identified. Endometrium: 0.2 cm. Thin endometrium. No mass is identified. There is slight posterior bowing of the endometrium but no uterine or endometrial abnormality is identified. Right ovary: Not identified. Left ovary: 3.0 cm x 2.1 cm x 2.4 cm. Several small follicles are identified within the LEFT ovary. T here is no mass. No free fluid in the cul-de-sac. IMPRESSION: 1. Mild enlargement of the uterus. Poorly visualized endometrium and myometrium. 2. There is slight bowing posteriorly of the endometrium but no abnormality identified. 3. RIGHT ovary not identified.
== END 2024-01-01 15:51 | disposition home or self-care (01) ==
LOC: RAD 15:50
PROVIDERS: PCP Family Medicine; Visit Provider Nurse Practitioner Family
DX: N93.9 Abnormal uterine and vaginal bleeding, unspecified (principal); R10.2 Pelvic and perineal pain; N85.2 Hypertrophy of uterus
CPT/HCPCS: 76830; 76856

== ENCOUNTER 2024-02-29 16:16 | Emergency (ER) | payer MEDICAID, SELFPAY ==
[2024-02-29 16:18] VITALS: BP 159/100; PULSE 94; RESP 18; TEMP 36.6; O2SAT 97
--- NOTE | 2024-02-29 17:39 | ED_ITS ---
HPI - Female Genitourinary 2 General: Chief complaint: Vaginal Bleeding Stated complaint: excessive vaginal bleeding, dizzy, weakness Time Seen by Provider: 02/29/24 17:21 Source: patient Mode of arrival: ambulatory Limitations: no limitations History of Present Illness: 33-year-old female states that she has h ad irregular menses and heavy bleeding for 5 or 6 years she states that it is worsening she had continuous bleeding last 8 weeks she has been following with OB Dr. Sunshine who switched her Nexplanon to oral control she states she is continue to bleed she states she has been going through a tampon every 1-2 hours today she had some lightheadedness some lower abdominal cramping she had an ultrasound 1 month ago that showed I believe fibroids. Associated symptoms: Reports abdominal pain; Deny headache(s) or nausea Review of Systems 2 Const: Denies: fever(s), chills, body aches or change in appetite ENMT: Denies: throat pain or dental pain Card: Denies: chest pain Resp: Denies: dyspnea GI: Reports: abdominal pain; Denies: nausea, vomiting or diarrhea : Reports: vaginal bleeding Musc: Denies: neck pain or back pain Skin/Breast: Denies: rash Neuro: Denies: headache(s) PFSH ED 2 PFSH: Family History Father Diabetes Hypercholesteremia Hypertension Mother Diabetes Hypercholesteremia Hypertension Sister Diabetes Denies family history of Colon cancer Ovarian cancer Prostate cancer Heart disease Breast cancer Uterine cancer Thyroid disease Stroke Physical Exam 2 Const: COMMON NORMALS: no acute distress, patient oriented x3 and healthy appearing HENMT: COMMON NORMALS: normocephalic and atraumatic HEAD & SCALP: n ormocephalic and atraumatic Neck/C-Spine: COMMON NORMALS: full ROM and supple Chest: COMMONS NORMALS: normal inspection of the chest Resp: COMMON NORMALS: normal respiratory effort Cardio: COMMON NORMALS: regular rate RATE: regular rate GI: COMMON NORMALS: Normal to inspection, nondistended, normoactive bowel sounds present, Soft to palpation, non-tender and no masses PALPATION: Yes Soft to palpation Extremity: COMMON NORMALS: normal to inspection and full ROM Neuro: COMMON NORMALS: patient oriented x3, moves all extremities and no focal motor deficits Psych: COMMON NORMALS: mental status grossly normal, Normal thought process present and cooperative THOUGHT PROCESS: Normal thought process present Skin: COMMON NORMALS: no rashes or lesions noted and no wounds GENERAL SKIN EXAM: no rashes or lesions noted Course 2 Vital Signs: Vital signs: Vital Signs Temperature 97.9 F 02/29/24 16:18 Pulse Rate 80 02/29/24 18:53 Respiratory Rate 17 02/29/24 18:20 Blood Pressure 159/100 02/29/24 16:18 Pulse Oximetry 94 02/29/24 18:53 Oxygen Delivery Me thod Room Air 02/29/24 18:53 MDM - Female Medical Decision Making Patient presents with abnormal uterine bleeding her hemoglobin here is normal her vitals here been normal she stable for discharge she is to follow-up with her bushel girl return if worsening she understands agrees to plan Medical Records I reviewed the patient's medical records. Lab Data I reviewed the patient's lab results. 02/29/24 19:44 Laboratory Results WBC 8.16 10^3/uL (3.29-11.43) 02/29/24 19:44 RBC 5.22 10^6/uL (3.85-5.65) 02/29/24 19:44 Hgb 14.90 g/dL (11.27-16.99) 02/29/24 19:44 Hct 43.8 % (36-47) 02/29/24 19:44 MCV 83.9 fl (85-98) L 02/29/24 19:44 MCH 28.5 pg (27-33) 02/29/24 19:44 MCHC 34.0 g/dL (30-55) 02/29/24 19:44 RDW 12.1 % (12.1-15.1) 02/29/24 19:44 Plt Count 357 10^3/cmm (157-399) 02/29/24 19:44 MPV 10.0 fL (7.4-10.4) 02/29/24 19:44 Neut % (Auto) 55.6 % 02/29/24 19:44 Lymph % (Auto) 30.5 % 02/29/24 19:44 [place] % (Auto) 7.4 % 02/29/24 19:44 Eos % (Auto) 5.5 % 02/29/24 19:44 Baso % (Auto) 0.6 % 02/29/24 19:44 Neut # (Auto) 4.54 10^3/uL (1.8-7.7) 02/29/24 19:44 Lymph # (Auto) 2.5 10^3/uL (0.8-4.8) 02/29/24 19:44 [place] # (Auto) 0.6 10^3/uL (0.2-0.9) 02/29/24 19:44 Eos # (Auto) 0.5 10^3/uL (0.0-0.8) 02/29/24 19:44 Baso # (Auto) 0.1 10^3/uL (0.0-0.1) 02/29/24 19:44 Nucleated RBC % (auto) 0 % 02/29/24 19:44 Nucleated RBCs # 0.0 /100WBC 02/29/24 19:44 No radiology studies performed this visit Discharge Plan Discharge Patient Disposition: Home Clinical Impression: Abnormal uterine bleeding (AUB) Condition: Stable Prescriptions: No Action norethindrone-ethin estradiol 1-35 mg-mcg tablet 1 tab PO DAILY Qty: 84 3RF diclofenac sodium 75 mg tablet,delayed release (DR/EC) 75 mg PO BID PRN (Reason: pain) Qty: 60 2RF Discharge Orders: Discharge ED (Routine); Ordered 02/29/24 Ordered By: Lit Romero Referrals: Chuck Sunshine MD [Primary Care Provider] - 1-3 days Discharge Diet: Advance as tolerated Discharge Activity: Resume usual activity Patient Instructions: Abnormal (Dysfunctional) Uterine Bleeding (ED) Coding Level of Care Code ED Experience 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
[2024-02-29 18:20] VITALS: RESP 17; O2SAT 99
[2024-02-29] MEDS: morphine 4 mg/mL SDV 1 mL IVP (18:20)
[2024-02-29] MEDS: ondansetron 2 mg/ML SDV 2 mL 4 MG IVP (18:35)
[2024-02-29] MEDS: sodium chloride 0.9% 1,000 ML 999 ML IV (18:35)
[2024-02-29 18:53] VITALS: PULSE 80; O2SAT 94
[2024-02-29 20:10] LABS: Basophils # 0.1 10^3/uL (0.0-0.1); Basophils % 0.6 %; Eosinophils # 0.5 10^3/uL (0.0-0.8); Eosinophils % 5.5 %; Hematocrit 43.8 % (36-47); Lymphocytes # 2.5 10^3/uL (0.8-4.8); Lymphocytes % 30.5 %; Mean Corpuscular Hemoglobin 28.5 pg (27-33); Mean Corpuscular Volume 83.9 fl (85-98); Monocytes # 0.6 10^3/uL (0.2-0.9); Monocytes % 7.4 %; Neutrophils # 4.54 10^3/uL (1.8-7.7); Neutrophils % 55.6 %; Nucleated Red Blood Cells % 0 %; Platelet Count 357 10^3/cmm (157-399); Red Blood Count 5.22 10^6/uL (3.85-5.65); Red Cell Distribution Width 12.1 % (12.1-15.1); White Blood Count 8.16 10^3/uL (3.29-11.43)
[2024-02-29 20:29] VITALS: PULSE 82; RESP 16; O2SAT 95
[2024-02-29 20:44] LABS: HCG, Serum Qual Negative (Negative)
--- NOTE | 2024-02-29 21:16 | DCPLANNER ---
Message sent to OBGYN for follow up on vaginal bleeding.
== END 2024-02-29 20:23 | disposition home or self-care (01) ==
PROVIDERS: Emergency Provider Emergency Medicine; PCP Obstetrics & Gynecology
DX: N93.9 Abnormal uterine and vaginal bleeding, unspecified (principal)
CPT/HCPCS: 36415; 84703; 85025; 96361; 96374; 96375; 99284; J2270; J2405; J7030

== ENCOUNTER 2024-04-25 09:30 | Inpatient (IN) | payer MEDICAID, SELFPAY ==
--- NOTE | 2024-04-24 22:44 | W.PM.OPSFHP ---
Same Day Surgery H&P Indication for Procedure/HPI DATE OF PROCEDURE: April 24, 2024 CHIEF COMPLAINT/INDICATIONFOR SURGICAL PROCEDURE: menorrhagia PREOP DIAGNOSIS: menorrhagia PLANNED PROCEDURE: Operation Date: 04/25/24 07:30 Proposed Procedures p Total Abdominal Hysterectomy 75091,R10.2 , N93.9(Not Applicable) - Chuck Sunshine MD 33 y.o. SA8 with one-year history of heavy menstrual bleeding did not improve with OCs and Nexplanon now scheduled for total abdominal hysterectomy, possible bilateral salpingectomy Medications/Allergies* Allergies/Adverse Reactions Allergy/AdvReac Type Severity Reaction Status Date / Time No Known Drug Allergies Allergy Unknown Verified 04/22/24 07:59 Pertinent History/Comorbid Conditions* Family History (Updated 01/16/24 @ 13:01 by Cely Almonte LPN) Diabetes Father Mother Sister Hypercholesteremia Father Mother Hypertension Father Mother Denies family history of Colon cancer Ovarian cancer Prostate cancer Heart disease Breast cancer Uterine cancer Thyroid disease Stroke Pertinent Exam Findings alert, oriented x 3, clear to auscultation bilaterally and regular rate & rhythm Pertinent Data Pelvic sono 01-01-24 uterus 10.4 x 5.6 x 5.3 cm Myometrium and endometrium poorly visualized Right ov not seen Left ov normal Recommendations Surgery/Procedure today Coding Level of Care Code Acute Code for Chg Fwd Time Spent (min) 20
[2024-04-25] VITALS (21 sets, daily range): BP systolic 113–142; BP diastolic 61–92; PULSE 67–93; RESP 14–20; TEMP 36.1–36.9; O2SAT 92–100; BMI 36.0
[2024-04-25] MEDS: sodium chloride 0.9% 1,000 ML 30 ML IV (06:32)
[2024-04-25] MEDS: ondansetron 2 mg/ML SDV 2 mL 4 MG IVP (06:44)
[2024-04-25] MEDS: scopolamine 1.5 Patch 1 PATCH TRANSDERMA (06:44)
[2024-04-25] MEDS: diphenhydrAMINE 50 mg/mL SDV 1mL 12.5 MG IVP (06:45)
--- NOTE | 2024-04-25 06:56 | W.PM.OPSUD ---
Surgery/Procedure H&P Update DATE OF PROCEDURE: April 25, 2024 DATE H&P PERFORMED: 04/24/24 H&P UPDATE INFORMATION: I have reviewed H&P completed within last 30 days, I have examined patient prior to procedure and No changes to prior documentation PREOP DIAGNOSIS: menorrhagia PLANNED PROCEDURE: Operation Date: 04/25/24 07:30 Proposed Procedures p Total Abdominal Hysterectomy 93698,R10.2 , N93.9(Not Applicable) - Chuck Sunshine MD
[2024-04-25] MEDS: ceFAZolin 2,000 MG in sodium chloride 0.9% (plus) 50 ML 100 MG IV (07:38)
--- NOTE | 2024-04-25 08:02 | P.ANESASSM_ITS ---
Pre-Anesthetic Assessment Height/Weight: Height 1.63 m Weight 95.254 kg Temp Pulse Resp BP Pulse Ox O2 Del Method 97.5 F L 70 17 142/92 97 Room Air 04/25/24 06:08 04/25/24 06:08 04/25/24 06:08 04/25/24 06:08 04/25/24 06:08 04/25/24 06:54 Preop Diagnosis: menorrhagia Operation Date: 04/25/24 07:30 Proposed Procedures p Total Abdominal Hysterectomy 81875,R10.2 , N93.9(Not Applicable) - Chuck Sunshine MD Familial anesthetic complications: none Was Beta Miky taken within 24 hours: N/A Was Clonidine taken within 24 hours: N/A Last intake: Intake Last Liquid Date 04/24/24 Last Liquid Time 23:00 Last Solid Date 04/24/24 Last Solid Time 19:30 Social No alcohol and No tobacco Exam alert, oriented x 3, clear to auscultation bilaterally and regular rate & rhythm Airway Submandibular: within normal limits Cervical ROM: within normal limits Mallampati: Class II Dentition: chipped Comments: Comments: Dental caries CV/HEM Anemia Metabolic Morbid [place] [facility] [place] Osteoarthritis/DJD Anesthetic Plan ASA status: 2 Anesthesia: General Medications/Allergies Home Medications Medication Instructions Recorded Confirmed Last Taken Type diclofenac sodium 75 mg 75 mg PO BID PRN pain #60 tabs 01/08/24 04/24/24 04/24/24 Rx tablet,delayed release norethindrone 1 mg-ethinyl 1 tab PO DAILY #84 tabs 01/16/24 04/24/24 04/24/24 Rx estradiol 35 mcg tablet Allergies Allergy/AdvReac Type Severity Reaction Status Date / Time No Known Drug Allergies Allergy Unknown Verified 04/22/24 07:59 Current Medications Generic Name Dose Route Start Last Admin Trade Name Freq PRN Reason Stop Dose Admin Diphenhydramine HCl 12.5 mg 04/25/24 06:00 04/25/24 06:45 Diphenhydramine 50 Mg/Ml Sdv 1ml IVP 12.5 mg ONCE PRN Administration PONV Sodium Chloride 1,000 mls @ 30 mls/hr 04/25/24 06:00 04/25/24 06:32 Sodium Chloride 0.9% IV 04/26/24 05:59 30 mls/hr .Q24H ROLA Administration Ondansetron HCl 4 mg 04/25/24 06:00 04/25/24 06:44 Ondansetron 2 Mg/Ml Sdv 2 Ml IVP 4 mg ONCE PRN Administration NAUSEA AND VOMITING PFSH Anesthesia Family History Father Diabetes Hypercholesteremia Hypertension Mother Diabetes Hypercholesteremia Hypertension Sister Diabetes Denies family history of Colon cancer Ovarian cancer Prostate cancer Heart disease Breast cancer Uterine cancer Thyroid disease Stroke Data Anesthesia Blood Bank 04/25/24 06:18 Blood Type O Negative Rho(D) Type Rh negative Antibody Screen Negative Cardiac Studies: No Data to Display
[2024-04-25] MEDS: BUPivacaine 0.25% INJ 10 mL 24 ML INJECTION (08:52)
[2024-04-25] MEDS: BUPivacaine liposome 13.3 mg/mL SDV 10 mL 266 MG INFILTRATI (08:52)
[2024-04-25] MEDS: fentaNYL 50 mcg/mL INJ 2mL IVP (09:49)
--- NOTE | 2024-04-25 09:49 | P.OP_ITS ---
Operative Report Date of procedure: April 25, 2024 Pre-op diagnosis: menorrhagia Post-op diagnosis: same Post-op findings: Normal uterus, tubes, and ovaries Normal and intact bladder Procedure done: Total abdominal hysterectomy Bilateral salpingectomy Implants: none Specimens removed/disposition: uterus, cervix, bilateral fallopian tubes Surgeon: Izaiah Caballero MD Property Insurance Agent: Chuck Sunshine Anesthesia: General Estimated blood loss (mL): 50 Complications: none Findings: Normal uterus, tubes, and ovaries Normal and intact bladder Condition: stable Disposition: PACU Brief History: 33 y.o. with menorrhagia Procedure: Informed consent obtained. The patient was taken to the operating room and placed supine on the table. General endotracheal anesthesia was induced. The abdomen was prepped and draped in the usual sterile fashion. A thompson catheter was placed which drained clear urine. A pfannenstiel incision was made over an old scar and carried down through skin and subcutaneous tissue and fascia. The fascia was sharply incised. The rectus muscles were and the abdomen was entered bluntly in the midline. The pelvic contents were visualized and examined. An Bubba-O retractor was placed. The bowels were packed out of the way. The Ligasure device was used throughout for vessel sealing and cutting. The hysterectomy was begun by dividing and ligating the round ligaments bilaterally. The fallopian tubes were removed by clamping and ligating the mesosalpinx on each side. The ovaries were left intact. The vesicouterine peritoneal fold was incised in a transverse curvilinear fashion and sharply dissected downward mobilizing the bladder off the lower uterine segment. The uterine vessels were skeletonized and bilaterally divided and ligated. The procedure was carried down on both sides of the uterus until the cardinal uterosacral ligament was reached. The cervix was then incised. The vaginal cuff was identified and the mucosa was from the cervix. In this fashion, the uterus and tubes were removed leaving the vaginal cuff. The vaginal cuff was identified and the mucosa was sewn with O-Vicryl. The pelvis was inspected and irrigated. There was no bleeding. The abdominal packs were removed as was the retractor. The fascia was then closed with a continuous stitch of O-Vicryl. The subcutaneous tissue was irrigated and inspected for hemostasis. Exparel 40 cc was given subcutaneously for postoperative pain relief. The skin was then reapproximated using Insorb absorbable subcuticular skin pablo. The patient was then placed supine, extubated, and taken to the recovery room. Postoperative condition: stable EBL: 50 cc Complications: none Sponge, needle, instruments counts were correct x two.
[2024-04-25] MEDS: HYDROcodone-acetaminophen 5-325 mg Tablet PO (10:41)
[2024-04-25] MEDS: dextrose 5%-lactated ringers 1,000 ML 125 ML IV (10:42)
--- NOTE | 2024-04-25 13:52 | ANE.PACU2 ---
Inpatient post-anesthesia follow up: Airway intact: Yes Vital signs: Temperature 98.1 F Pulse Rate 93 Respiratory Rate 18 Blood Pressure 123/79 Pulse Oximetry 95 Oxygen Delivery Me thod Room Air Oxygen Flow Rate 6 Fraction of Inspir ed Oxygen Hydration adequate: Yes Nausea and vomiting: No Pain level: 3 Mental status: Baseline
[2024-04-25] MEDS: docusate sodium 100 mg Capsule PO (20:13)
[2024-04-25] MEDS: acetaminophen 325 mg Tablet 650 MG PO (20:14)
[2024-04-26] MEDS: ketorolac 30 mg/mL INJ IVP (00:11)
[2024-04-26] MEDS: HYDROcodone-acetaminophen 5-325 mg Tablet PO ×3 (00:12→12:26)
[2024-04-26 05:00] VITALS: BP 109/68; PULSE 69; RESP 16; TEMP 36.8; O2SAT 99
[2024-04-26 05:34] LABS: Hematocrit 36.8 % (36-47); Mean Corpuscular HGB Conc 33.4 g/dL (30-55); Mean Corpuscular Hemoglobin 28.6 pg (27-33); Mean Corpuscular Volume 85.6 fl (85-98); Platelet Count 294 10^3/cmm (157-399); Red Cell Distribution Width 12.3 % (12.1-15.1); White Blood Count 14.96 10^3/uL (3.29-11.43)
[2024-04-26 07:27] VITALS: BP 121/72; PULSE 72; RESP 16; TEMP 36.7
[2024-04-26] MEDS: docusate sodium 100 mg Capsule PO (09:59)
[2024-04-26] MEDS: ibuprofen 800 mg tablet PO (09:59)
[2024-04-26 12:00] VITALS: BP 126/75; PULSE 93; RESP 16; TEMP 36.8
== END 2024-04-26 12:35 | disposition home or self-care (01) | DRG 743 ==
LOC: OBGYN 09:35
PROVIDERS: Admitting Provider Obstetrics & Gynecology; PCP Obstetrics & Gynecology; Visit Provider Obstetrics & Gynecology
PROC: 0UT90ZZ Resection of Uterus, Open Approach (ICD-10-PCS; CPT 58150; principal; 2024-04-25 07:30)
DX: N92.0 Excessive and frequent menstruation with regular cycle (principal)
CPT/HCPCS: 36415; 51702; 85027; 86850; 86900; 88307; C9290; J0131; J0690; J1100; J1170; J1200; J1885; J2250; J2405; J2704; J2710; J3010; J3490; J7030; J7121

== ENCOUNTER 2024-05-22 13:38 | Emergency (ER) | payer MEDICAID, SELFPAY ==
[2024-05-22 13:38] VITALS: BP 137/95; PULSE 77; RESP 15; TEMP 36.7; O2SAT 97
[2024-05-22 14:13] LABS: Basophils % 0.4 %; Eosinophils # 0.4 10^3/uL (0.0-0.8); Eosinophils % 3.7 %; Hematocrit 45.8 % (36-47); Lymphocytes # 2.5 10^3/uL (0.8-4.8); Lymphocytes % 27.1 %; Mean Corpuscular HGB Conc 33.4 g/dL (30-55); Mean Corpuscular Hemoglobin 28.1 pg (27-33); Mean Corpuscular Volume 84.2 fl (85-98); Monocytes # 0.6 10^3/uL (0.2-0.9); Monocytes % 5.9 %; Neutrophils # 5.82 10^3/uL (1.8-7.7); Neutrophils % 62.3 %; Nucleated Red Blood Cells % 0 %; Platelet Count 310 10^3/cmm (157-399); Red Blood Count 5.44 10^6/uL (3.85-5.65); Red Cell Distribution Width 12.3 % (12.1-15.1); White Blood Count 9.36 10^3/uL (3.29-11.43)
[2024-05-22] MEDS: lactated ringers 1,000 ML 999 ML IV (14:15)
[2024-05-22] MEDS: ondansetron 2 mg/ML SDV 2 mL 4 MG IVP (14:15)
[2024-05-22 14:34] LABS: Alanine Aminotransferase 41 U/L (0-33); Albumin Level 4.2 g/dL (3.5-5.2); Alkaline Phosphatase 82 U/L (35-105); Anion Gap 16.2 (5-19); Aspartate Amino Transferase 21 U/L (0-32); Blood Urea Nitrogen 12 mg/dL (6-20); Calcium 8.9 mg/dL (8.5-10.5); Carbon Dioxide 22 mmol/L (22-29); Chloride 105 mmol/L (98-107); Creatinine Clr Calc Pharmacy 124.7083; Globulin 3.1 g/dL (1.3-4.6); Glomerular Filtration Rate 96.4 mL/min (90-130); Glucose 85 mg/dL (65-115); Osmolality Calculated 287 mOsm/kg (285-295); Potassium 4.2 mmol/L (3.5-5.1); Sodium 139 mmol/L (136-145); Total Bilirubin 0.4 mg/dL (0.15-1.2); Total Protein 7.3 g/dL (6.6-8.7)
--- NOTE | 2024-05-22 14:46 | ED_ITS ---
HPI - Abdominal Pain 2 General: Chief Complaint: Abdominal Pain Stated Complaint: Right side pain and vomiting Time Seen by Provider: 05/22/24 13:48 Source: patient Mode of arrival: ambulatory Limitations: no limitations History of Present Illness: This patient presents to our emergency department with a history of right lower quadrant pain. She states the pain has been present since yesterday for sure but she states her told she started complaining of it Monday. She states the pain is been in the same location since onset. It has also interfered with her sleep. She states she is urinated. She states she is also had a bowel movement neither of which have affected her pain. She states that she has not felt well and not have much of an appetite. She is unaware of any fevers. She recently had a total abdominal hysterectomy at this facility on 25 April but has been doing well. She denies any lifting twisting turning or other activities that might of been a potential cause of her current symptoms. She denies any blood in her urine. She had associated nausea but no vomiting. MD elicited complaint: abdominal pain Location: RLQ Radiation: none Migration to: no migration Associated Symptoms: Reports no associated symptoms; Denies chills, dysuria, fever(s) and syncope Review of Systems 2 Const: Reports: change in appetite; Denies: fever(s) or chills Eyes: Denies: change in vision ENMT: Denies: throat pain, odynophagia, nasal discharge or nasal congestion Card: Denies: chest pain, syncope or pre-syncope Resp: Denies: dyspnea, productive cough or non-productive cough GI: Reports: abdominal pain : Denies: difficulty voiding, dysuria or urinary frequency Musc: Denies: back pain, extremity pain or extremity swelling Skin/Breast: Denies: rash Neuro: Denies: headache(s), numbness in extremities or weakness in extremities PFSH ED 2 PFSH: Family History Father Diabetes Hypercholesteremia Hypertension Mother Diabetes Hypercholesteremia Hypertension Sister Diabetes Denies family history of Colon cancer Ovarian cancer Prostate cancer Heart disease Breast cancer Uterine cancer Thyroid disease Stroke Physical Exam 2 Narrative: EXAM NARRATIVE: She is alert and appears to be comfortable. She does cooperate. She is uncomfortable with movement however. Const: COMMON NORMALS: no acute distress and patient oriented x3 GENERAL APPEARANCE: cooperative NUTRITIONAL APPEARANCE: overweight HENMT: COMMON NORMALS: normocephalic, Normal nasal mucous membranes and turbinates present and moist oral mucous membranes HEAD & SCALP: n ormocephalic FACE & SINUS: normal facial exam NOSE: Normal nasal mucous membranes and turbinates present Eye: COMMON NORMALS: Equal, round and reactive pupils present, EOMs intact bilaterally and conjunctivae normal CONJUNCTIVA: Yes conjunctivae normal P UPIL: Yes Equal, round and reactive pupils present Neck/C-Spine: COMMON NORMALS: full ROM and no lymphadenopathy Resp: COMMON NORMALS: normal respiratory effort, No retractions, No use of accessory muscles and clear to auscultation bilaterally AUSCULTATION: clear to auscultation bilaterally Cardio: COMMON NORMALS: regular rate, regular rhythm and Peripheral pulses 2+ throughout RATE: regular rate RHYTHM: regular rhythm PERIPHERAL PULSES: Peripheral pulses 2+ throughout GI: COMMON NORMALS: Normal to inspection, nondistended, normoactive bowel sounds present OTHER: Abdominal examination reveals localized tenderness in right lower quadrant with some peritoneal irritation to light touch. Movement of the right hip both internal and external rotation exacerbates her symptoms. As well as flexion of the hip. Her transverse abdominal incision from her recent hysterectomy is intact without any erythema or drainage and is well-approximated. : BLADDER/KIDNEY EXAM: Yes CVA tenderness Back/Pelvis: COMMON NORMALS: thoracic and lumbar spine normal to inspection, thoraco-lumbar ROM normal and straight leg raise negative bilaterally GENERAL BACK: Yes CVA tenderness CVA tenderness: right Extremity: COMMON NORMALS: normal to inspection, full ROM, capillary refill normal, no calf tenderness and no pedal edema Neuro: COMMON NORMALS: patient oriented x3, moves all extremities and no focal motor deficits Psych: COMMON NORMALS: mental status grossly normal Skin: COMMON NORMALS: no rashes or lesions noted, no wounds and turgor normal GENERAL SKIN EXAM: no rashes or lesions noted and turgor normal Course 2 Reevaluation(s): Reevaluation #1: Patient relates that her her symptoms are some improved. He received Toradol as well as Levsin. Has been is now present and he relates that he thinks that she probably lifted a little bit more than she should have in the last few days. She had been doing pretty well and has been reducing her hydrocodone use but then when she takes 1 she feels comfortable and tends to overdo it a bit. We discussed her current results and the reassuring nature and that she has no evidence of intraperitoneal bleeding, appendicitis, bowel obstruction or other concerning intra-abdominal pathology. At this point she does not have any evidence of an ongoing emergency medical condition and is suitable to be discharged to home with continuing her postop instructions and also discussed return precautions. Time: 18:16 Vital Signs: Vital signs: Vital Signs Temperature 98.0 F 05/22/24 13:38 Pulse Rate 77 05/22/24 13:38 Respiratory Rate 15 05/22/24 13:38 Blood Pressure 137/95 05/22/24 13:38 Pulse Oximetry 97 05/22/24 13:38 Oxygen Delivery Me thod Room Air 05/22/24 13:38 MDM - Abdominal Pain Medical Decision Making This patient has had a total abdominal hysterectomy on 25 April without any significant sequelae postoperatively presented to the emergency department because of approximately 2-2 and half days of predominantly right lower quadrant abdominal pain. She states that she had limited her activity as per her postoperative instructions. There was no associated nausea vomiting or diarrhea. She said there was no other concerning symptoms noted. She states however that certain positions and movement caused her pain to increase. Her clinical exam revealed right lower quadrant tenderness with some evidence of possible peritoneal irritation as she was tender with certain movements and/or palpation of the abdominal wall. Differential included possible appendicitis versus renal lithiasis versus urinary tract infection versus postoperative pain. Laboratories urinalysis and imaging were obtained to help progress through the differential. Her laboratories and urinalysis were very reassuring and her CT scan was reassuring as well without any evidence of an acute intra-abdominal process. arrived later on and added additional illuminating history and that he thinks that she has probably been lifting and/or doing more than she should postoperatively. Given this additional history and her reassuring imaging and laboratories this is the likely etiology of her current presentation. She was improved after ketorolac and stable for discharge. We discussed continued postop activity and also return precautions Lab Data I reviewed the patient's lab results. 05/22/24 14:00 05/22/24 14:00 Labs/Radiology: Radiology Impressions Abdomen/Pelvis CT 05/22/24 14:46 IMPRESSION: 1. No evidence of acute abnormality in the abdomen or pelvis. Laboratory Results WBC 9.36 10^3/uL (3.29-11.43) 05/22/24 14:00 RBC 5.44 10^6/uL (3.85-5.65) 05/22/24 14:00 Hgb 15.30 g/dL (11.27-16.99) 05/22/24 14:00 Hct 45.8 % (36-47) 05/22/24 14:00 MCV 84.2 fl (85-98) L 05/22/24 14:00 MCH 28.1 pg (27-33) 05/22/24 14:00 MCHC 33.4 g/dL (30-55) 05/22/24 14:00 RDW 12.3 % (12.1-15.1) 05/22/24 14:00 Plt Count 310 10^3/cmm (157-399) 05/22/24 14:00 MPV 10.0 fL (7.4-10.4) 05/22/24 14:00 Neut % (Auto) 62.3 % 05/22/24 14:00 Lymph % (Auto) 27.1 % 05/22/24 14:00 [place] % (Auto) 5.9 % 05/22/24 14:00 Eos % (Auto) 3.7 % 05/22/24 14:00 Baso % (Auto) 0.4 % 05/22/24 14:00 Neut # (Auto) 5.82 10^3/uL (1.8-7.7) 05/22/24 14:00 Lymph # (Auto) 2.5 10^3/uL (0.8-4.8) 05/22/24 14:00 [place] # (Auto) 0.6 10^3/uL (0.2-0.9) 05/22/24 14:00 Eos # (Auto) 0.4 10^3/uL (0.0-0.8) 05/22/24 14:00 Baso # (Auto) 0.0 10^3/uL (0.0-0.1) 05/22/24 14:00 Nucleated RBC % (auto) 0 % 05/22/24 14:00 Nucleated RBCs # 0.0 /100WBC 05/22/24 14:00 Sodium 139 mmol/L (136-145) 05/22/24 14:00 Potassium 4.2 mmol/L (3.5-5.1) 05/22/24 14:00 Chloride 105 mmol/L (98-107) 05/22/24 14:00 Carbon Dioxide 22 mmol/L (22-29) 05/22/24 14:00 Anion Gap 16.2 (5-19) 05/22/24 14:00 BUN 12 mg/dL (6-20) 05/22/24 14:00 Creatinine 0.7 mg/dL (0.5-0.9) 05/22/24 14:00 GFR Calculation 96.4 mL/min (90-130) 05/22/24 14:00 Glucose 85 mg/dL (65-115) 05/22/24 14:00 Calculated Osmolality 287 mOsm/kg (285-295) 05/22/24 14:00 Calcium 8.9 mg/dL (8.5-10.5) 05/22/24 14:00 Total Bilirubin 0.4 mg/dL (0.15-1.2) 05/22/24 14:00 AST 21 U/L (0-32) 05/22/24 14:00 ALT 41 U/L (0-33) H 05/22/24 14:00 Alkaline Phosphatase 82 U/L (35-105) 05/22/24 14:00 Total Protein 7.3 g/dL (6.6-8.7) 05/22/24 14:00 Albumin 4.2 g/dL (3.5-5.2) 05/22/24 14:00 Globulin 3.1 g/dL (1.3-4.6) 05/22/24 14:00 HCG, Qual Negative (Negative) 05/22/24 15:16 Urine Color Yellow (Yellow) 05/22/24 15:16 Urine Appearance Clear (CLEAR) 05/22/24 15:16 Urine pH 5 (5-7) 05/22/24 15:16 Ur Specific [place] 1.005 (1.005-1.030) 05/22/24 15:16 Urine Protein Neg (Negative) 05/22/24 15:16 Urine Glucose (UA) Norm (Normal) 05/22/24 15:16 Urine Ketones Negative (Negative) 05/22/24 15:16 Urine Blood Neg (Negative) 05/22/24 15:16 Urine Nitrate Negative (Negative) 05/22/24 15:16 Urine Bilirubin Neg (Negative) 05/22/24 15:16 Urine Urobilinogen Norm mg/dL (Negative) 05/22/24 15:16 Ur Leukocyte Esterase Negative (Negative) 05/22/24 15:16 All radiology interpretation(s) finalized by discharge Discharge Plan Discharge Patient Disposition: Home Clinical Impression: Abdominal pain Condition: Stable Prescriptions: No Action oxycodone-acetaminophen [Percocet] 5-325 mg tablet 1 tab PO Q8H PRN (Reason: pain) 10 Days Qty: 30 0RF diclofenac sodium 75 mg tablet,delayed release (DR/EC) 75 mg PO BID PRN (Reason: pain) Qty: 60 2RF oxybutynin chloride 5 mg tablet extended release 24hr 5 mg PO DAILY Qty: 30 1RF [place] (28) 1-35 mg-mcg tablet 1 tab PO DAILY Discharge Orders: Discharge ED (Routine); Ordered 05/22/24 Ordered By: Izaiah Dominguez Referrals: Chuck Sunshine MD [Primary Care Provider] - Discharge Diet: Usual diet Discharge Activity: Limit activity as instructed Patient Instructions: Abdominal Pain (ED), Opioid Safety, Pain Management Activity Restrictions/Additional Instructions: As we discussed your laboratory test as well as your CAT scan did not reveal any evidence of a serious cause of your abdominal pain. Given your recent surgery and information obtained during repeat interviews it is likely that this pain is due to straining of your abdominal muscles postoperatively and/or your ongoing healing process. We recommend you continue to limit your activity as instructed by your surgeon. If you develop any new or worsening symptoms as we reviewed you are welcome to return to the emergency department for reevaluation. 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
--- NOTE | 2024-05-22 14:46 | CTR_ITS ---
PROCEDURE INFORMATION: Exam: CT Abdomen And Pelvis With Contrast Exam date and time: 05/22/2024 4:41 PM Age: 33 years old Clinical indication: Abdominal pain; Localized; Right lower quadrant (rlq); Prior surgery; Surgery date: <1 month; Surgery type: Hyst on April 27; Additional info: Rlq pain TECHNIQUE: Imaging protocol: Computed tomography of the abdomen and pelvis with contrast. Radiation optimization: All CT scans at this facility use at least one of these dose optimization techniques: automated exposure control; mA and/or kV adjustment per patient size (includes targeted exams where dose is matched to clinical indication); or iterative reconstruction. Contrast material: OMNI 350; Contrast volume: 100 ml; Contrast route: INTRAVENOUS (IV); COMPARISON: CT abdomen pelvis w con* [id number] 05/06/2019 6:17 PM RADIATION DOSE METRICS: Total DLP (mGy-cm): 841.58 FINDINGS: Lungs: Subsegmental bibasilar atelectasis. The visualized lung bases are otherwise grossly clear. Diaphragm: No evidence of diaphragmatic defect. Liver: No focal hepatic lesion. Gallbladder and biliary ducts: Unremarkable. No intra-hepatic or extra-hepatic biliary dilatation. Pancreas: Unremarkable. Spleen: Unremarkable. Adrenal glands: Unremarkable. Kidneys and ureters: No renal parenchymal abnormality. No hydronephrosis or ureteral stone. Stomach and bowel: No evidence of bowel obstruction or perienteric inflammatory changes. Appendix: Normal appendix. Intraperitoneal space: No evidence of free air or fluid collection. Vasculature: No aneurysmal dilatation or dissection of the abdominal aorta. The celiac trunk, SMA and DILEEP are grossly patent. No evidence of IVC thrombus. The portal vein, SMV and splenic veins are grossly patent. Lymph nodes: No adenopathy. Urinary bladder: Grossly unremarkable. Reproductive: Prior hysterectomy. Trace-small pelvic free fluid, grossly simple appearing. Bones/joints: No evidence of acute fracture or aggressive osseous lesion. 18 mm L3 vertebral body hemangioma. Soft tissues: No evidence of fluid collection or hematoma in the superficial soft tissues. CT/CT abdomen pelvis w con* [id number] IMPRESSION: 1. No evidence of acute abnormality in the abdomen or pelvis.
[2024-05-22 15:21] LABS: Charge for UA Resulting for Rev
[2024-05-22 15:49] LABS: Add Urine Microscopic? NO; Bilirubin Urine Neg (Negative); Blood Urine Neg (Negative); Glucose Urine UA Norm (Normal); Ketones Urine Negative (Negative); Leukocyte Esterase Urine Negative (Negative); Nitrate Urine Negative (Negative); Protein Urine Neg (Negative); Specific Gravity, Urine 1.005 (1.005-1.030); Urine Appearance Clear (CLEAR); Urine Color Yellow (Yellow); Urobilinogen Urine Norm (Negative); pH Urine 5 (5-7)
[2024-05-22 16:20] LABS: HCG Qualitative Urine. Negative (Negative)
[2024-05-22] MEDS: iohexol 350 mg/mL 500 mL Btl (per mL) IV (16:45)
[2024-05-22] MEDS: hyoscyamine ODT 0.125 mg Tablet PO (17:41)
[2024-05-22] MEDS: ketorolac 30 mg/mL INJ 15 MG IVP (17:41)
== END 2024-05-22 18:40 | disposition home or self-care (01) ==
PROVIDERS: Emergency Provider Emergency Medicine; PCP Obstetrics & Gynecology
DX: R10.31 Right lower quadrant pain (principal); Z90.710 Acquired absence of both cervix and uterus
CPT/HCPCS: 74177; 80053; 81003; 81025; 85025; 96365; 96375; 99285; J1885; J2405; J7120; Q9967

== ENCOUNTER 2024-08-23 08:43 | Outpatient (CLI) | payer MEDICAID, SELFPAY ==
--- NOTE | 2024-08-23 08:49 | XR_ITS ---
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 FINDINGS: No fracture or focal bone lesion. No periosteal reaction, bone erosion and no periostitis. The joint spaces of the right hand are intact and well preserved. No soft tissue abnormality. XR/XR hand RT min 3V* [id number] IMPRESSION: No significant arthropathic change.
--- NOTE | 2024-08-23 08:49 | XR_ITS ---
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 FINDINGS: No acute fracture or focal bone lesion. No periosteal reaction, no bone erosion and no periostitis. Joint spaces of the left hand are intact and well preserved. No soft tissue abnormality. XR/XR hand LT min 3V* [id number] IMPRESSION: No significant arthropathic change.
[2024-08-23 09:14] LABS: Basophils # 0.1 10^3/uL (0.0-0.1); Basophils % 0.5 %; Eosinophils # 0.2 10^3/uL (0.0-0.8); Eosinophils % 1.6 %; Hematocrit 42.9 % (36-47); Lymphocytes # 2.5 10^3/uL (0.8-4.8); Lymphocytes % 24.6 %; Mean Corpuscular HGB Conc 33.1 g/dL (30-55); Mean Corpuscular Hemoglobin 28.2 pg (27-33); Mean Corpuscular Volume 85.3 fl (85-98); Mean Platelet Volume 9.9 fL (7.4-10.4); Monocytes # 0.7 10^3/uL (0.2-0.9); Monocytes % 6.4 %; Neutrophils # 6.72 10^3/uL (1.8-7.7); Neutrophils % 66.2 %; Nucleated Red Blood Cells % 0 %; Platelet Count 323 10^3/cmm (157-399); Red Blood Count 5.03 10^6/uL (3.85-5.65); Red Cell Distribution Width 12.8 % (12.1-15.1); White Blood Count 10.14 10^3/uL (3.29-11.43)
[2024-08-23 09:23] LABS: Erythrocyte Sedimentation Rate 3 mm/hr (0-15)
[2024-08-23 09:33] LABS: Alanine Aminotransferase 36 U/L (0-33); Albumin Level 4.1 g/dL (3.5-5.2); Alkaline Phosphatase 71 U/L (35-105); Aspartate Amino Transferase 20 U/L (0-32); Blood Urea Nitrogen 11 mg/dL (6-20); C Reactive Protein 8.2 mg/L (0.0-4.9); Calcium 8.4 mg/dL (8.5-10.5); Carbon Dioxide 26 mmol/L (22-29); Chloride 103 mmol/L (98-107); Globulin 2.6 g/dL (1.3-4.6); Glomerular Filtration Rate 95.8 mL/min (90-130); Glucose 105 mg/dL (65-115); Osmolality Calculated 288 mOsm/kg (285-295); Sodium 139 mmol/L (136-145); Total Bilirubin 0.4 mg/dL (0.15-1.2); Total Protein 6.7 g/dL (6.6-8.7)
[2024-08-26 14:05] LABS: HLA-B27 NEGATIVE (NEGATIVE)
[2024-08-27 11:19] LABS: Anti-Nuclear Antibody Pattern Cytoplasmic; Anti-Nuclear Antibody Screen POSITIVE (NEGATIVE); Anti-Nuclear Antibody Titer 1:40 titer
== END 2024-08-23 08:44 | disposition home or self-care (01) ==
PROVIDERS: PCP Nurse Practitioner Family; Visit Provider Family Medicine
DX: M06.049 Rheumatoid arthritis without rheumatoid factor, unspecified hand (principal)
CPT/HCPCS: 36415; 73130; 80053; 85025; 85651; 86038; 86140; 86431; 86812

== ENCOUNTER → 2025-01-27 11:10 | Outpatient (BNVA) | payer MEDICAID, SELFPAY | PROVIDERS: PCP Nurse Practitioner Family; Visit Provider Internal Medicine Rheumatology | DX: M06.00 Rheumatoid arthritis without rheumatoid factor, unspecified site (principal); M25.50 Pain in unspecified joint; Z79.899 Other long term (current) drug therapy; M53.3 Sacrococcygeal disorders, not elsewhere classified; M54.50 Low back pain, unspecified; M79.642 Pain in left hand | CPT/HCPCS: 36415; 72100; 72202; 73130; 73630; 80076; 82565; 83520; 85025; 85651; 86140; 86480; 86704; 86803; 87340 ==

== ENCOUNTER 2025-02-27 09:53 | Outpatient (CLI) | payer MEDICAID, SELFPAY ==
[2025-02-27 10:08] LABS: Basophils # 0.1 10^3/uL (0.0-0.1); Basophils % 0.5 %; Eosinophils # 0.1 10^3/uL (0.0-0.8); Hematocrit 43.4 % (36-47); Lymphocytes # 1.4 10^3/uL (0.8-4.8); Lymphocytes % 14.5 %; Mean Corpuscular HGB Conc 33.6 g/dL (30-55); Mean Corpuscular Hemoglobin 28.7 pg (27-33); Mean Corpuscular Volume 85.3 fl (85-98); Mean Platelet Volume 9.6 fL (7.4-10.4); Monocytes # 0.3 10^3/uL (0.2-0.9); Monocytes % 3.6 %; Neutrophils # 7.64 10^3/uL (1.8-7.7); Nucleated Red Blood Cells % 0 %; Platelet Count 331 10^3/cmm (157-399); Red Blood Count 5.09 10^6/uL (3.85-5.65); White Blood Count 9.55 10^3/uL (3.29-11.43)
[2025-02-27 10:17] LABS: Erythrocyte Sedimentation Rate 2 mm/hr (0-15)
[2025-02-27 10:35] LABS: Alanine Aminotransferase 23 U/L (0-33); Albumin Level 4.4 g/dL (3.5-5.2); Alkaline Phosphatase 74 U/L (35-105); Aspartate Amino Transferase 15 U/L (0-32); C Reactive Protein 8.2 mg/L (0.0-4.9); Globulin 2.6 g/dL (1.3-4.6); Glomerular Filtration Rate 95.8 mL/min (90-130); Total Bilirubin 0.6 mg/dL (0.15-1.2)
== END 2025-02-27 09:54 | disposition home or self-care (01) ==
PROVIDERS: PCP Nurse Practitioner Family; Visit Provider Internal Medicine Rheumatology
DX: Z79.899 Other long term (current) drug therapy (principal)
CPT/HCPCS: 36415; 80076; 82565; 85025; 85651; 86140

== ENCOUNTER 2025-06-06 12:42 | Outpatient (CLI) | payer MEDICAID, SELFPAY ==
[2025-06-06 13:18] LABS: Hematocrit 42.1 % (36-47); Hemoglobin 14.60 g/dL (11.27-16.99); Mean Corpuscular HGB Conc 34.7 g/dL (30-55); Mean Corpuscular Hemoglobin 30.3 pg (27-33); Mean Corpuscular Volume 87.3 fl (85-98); Nucleated Red Blood Cells % 0 %; Platelet Count 298 10^3/cmm (157-399); Red Blood Count 4.82 10^6/uL (3.85-5.65); White Blood Count 7.46 10^3/uL (3.29-11.43)
[2025-06-06 18:04] LABS: Alanine Aminotransferase 20 U/L (0-33); Albumin Level 4.2 g/dL (3.5-5.2); Alkaline Phosphatase 67 U/L (35-105); Globulin 2.5 g/dL (1.3-4.6); Total Protein 6.7 g/dL (6.6-8.7)
[2025-06-06 19:14] LABS: Aspartate Amino Transferase 17 U/L (0-32)
== END 2025-06-06 12:43 | disposition home or self-care (01) ==
LOC: LAB 12:44
PROVIDERS: PCP Nurse Practitioner Family; Visit Provider Internal Medicine Rheumatology
DX: Z79.899 Other long term (current) drug therapy (principal)
CPT/HCPCS: 36415; 80076; 82565; 85025; 85651; 86140

== ENCOUNTER → 2025-06-16 13:33 | Outpatient (BNVA) | payer MEDICAID, SELFPAY | PROVIDERS: PCP Nurse Practitioner Family; Visit Provider Nurse Practitioner Family | DX: R10.9 Unspecified abdominal pain (principal) | CPT/HCPCS: 74018; 80053; 81000; 85025 ==

== ENCOUNTER 2025-06-26 08:34 | Day surgery (SDC) | payer MEDICAID, SELFPAY ==
[2025-06-26 08:59] VITALS: BP 114/87; PULSE 70; RESP 16; TEMP 36.4; O2SAT 96; BMI 33.5
--- NOTE | 2025-06-26 10:07 | P.ANESASSM_ITS ---
Pre-Anesthetic Assessment Height/Weight: Height 1.68 m Weight 94.347 kg Temp Pulse Resp BP Pulse Ox O2 Del Method 97.5 F L 70 16 114/87 96 Room Air 06/26/25 08:59 06/26/25 08:59 06/26/25 08:59 06/26/25 08:59 06/26/25 08:59 06/26/25 08:59 Operation Date: 06/26/25 10:15 Proposed Procedures p Colonoscopy 08484 G0105 K92.1(Not Applicable) - Deonte Sims MD Familial anesthetic complications: none Was Beta Miky taken within 24 hours: N/A Was Clonidine taken within 24 hours: N/A Last intake: Intake Last Liquid Date 06/25/25 Last Liquid Time 22:30 Last Solid Date 06/24/25 Last Solid Time 18:30 Social No alcohol and No tobacco Exam alert and oriented x 3 Airway Submandibular: within normal limits Cervical ROM: within normal limits Mallampati: Class II Dentition: full History/ROS No significant history except as noted Pulmonary None reported CV/HEM Anemia None reported Hepatic None reported GI Gastroesophageal Reflux Disease (rare) Metabolic Morbid Obesity [facility] Rheumatoid Arthritis Neuropsych None reported Anesthetic Plan ASA status: 3 Anesthesia: Anesthesia Evaluation and MAC Medications/Allergies Home Medications ?Medication ?Instructions ?Recorded ?Confirmed ?Last Taken ?Type folic acid 1 mg tablet 2 mg (2 x 1 mg) PO DAILY #18 0 tabs 05/07/25 06/26/25 06/23/25 Rx methotrexate sodium 2.5 mg tablet See Rx Instructions PO .week 05/07/25 06/26/25 06/21/25 Rx Rheumatoid Arthritis #150 tabs prednisone 5 mg tablet 5 mg PO DAILY #90 tabs 05/0706/26/25 06/23/25 Rx sulfasalazine 500 mg tablet 0.5 g PO BID #60 tabs 04/1406/26/25 06/23/25 Rx lactulose 10 gram/15 mL oral 20 g (30 mL) PO DAILY PRN 06/16/25 06/26/25 06/21/25 Rx solution constipation #100 mL ondansetron 8 mg disintegrating 8 mg PO Q8H PRN nausea and 06/23/25 06/26/25 Unknown Rx tablet vomiting #3 tabs polyethylene glycol 3350 17 17 g PO DAILY PRN Constipa tion 06/23/25 06/26/25 06/21/25 History gram/dose oral powder (Miralax) Allergies Allergy/AdvReac Type Severity Reaction Status Date / Time No Known Drug Allergies Allergy Unknown Verified 06/23/25 13:23 Current Medications Generic Name Dose Route Start Last Admin Trade Name Freq PRN Reason Stop Dose Admin Sodium Chloride 1,000 mls @ 15 mls/hr 06/26/25 08:46 06/26/25 09:03 Sodium Chloride 0.9% IV 06/27/25 08:45 15 mls/hr .Q24H PRN Administration COLONOSCOPY FLUIDS PFSH Anesthesia Medical History (Updated 06/23/25 @ 09:01 by Deonte Sims MD) Immunization counseling High risk medication use Seronegative rheumatoid arthritis of both hands Surgical History S/P hysterectomy Family History Father Diabetes Hypercholesteremia Hypertension Mother Diabetes Hypercholesteremia Hypertension Sister Diabetes Denies family history of Colon cancer Ovarian cancer Prostate cancer Heart disease Breast cancer Uterine cancer Thyroid disease Stroke Social History Smoking and tobacco/nicotine status: former use of tobacco/nicotine
--- NOTE | 2025-06-26 10:29 | W.PM.OPSUD ---
Surgery/Procedure H&P Update DATE OF PROCEDURE: June 26, 2025 DATE H&P PERFORMED: 06/23/25 H&P UPDATE INFORMATION: I have reviewed H&P completed within last 30 days, I have examined patient prior to procedure and No changes to prior documentation PLANNED PROCEDURE: Operation Date: 06/26/25 10:15 Proposed Procedures p Colonoscopy 32424 G0105 K92.1(Not Applicable) - Deonte Sims MD
--- NOTE | 2025-06-26 10:39 | SUR.OPER ---
[facility] time [id number]
[2025-06-26 10:49] VITALS: BP 94/94; PULSE 75; RESP 18; TEMP 36.1; O2SAT 93
[2025-06-26 11:06] VITALS: BP 115/75; PULSE 83; RESP 18; O2SAT 95
--- NOTE | 2025-06-26 11:28 | ANE.PACU2 ---
Inpatient post-anesthesia follow up: Airway intact: Yes Vital signs: Temperature 97 F Pulse Rate 83 Respiratory Rate 18 Blood Pressure 115/75 Pulse Oximetry 95 Oxygen Delivery Me thod Room Air Oxygen Flow Rate Fraction of Inspir ed Oxygen Hydration adequate: Yes Nausea and vomiting: No Pain level: 1 Mental status: Baseline
== END 2025-06-26 11:28 | disposition home or self-care (01) ==
PROVIDERS: PCP Nurse Practitioner Family; Visit Provider Student in an Organized Health Care Education/Training Program
PROC: 0DJD8ZZ Inspection of Lower Intestinal Tract, Via Natural or Artificial Opening Endoscopic (ICD-10-PCS; CPT 45378; principal; 2025-06-26 10:15)
DX: K92.1 Melena (principal); K64.4 Residual hemorrhoidal skin tags; D64.9 Anemia, unspecified; K21.9 Gastro-esophageal reflux disease without esophagitis; Z87.891 Personal history of nicotine dependence
CPT/HCPCS: 45378; J2704; J7030

== ENCOUNTER 2025-07-16 07:47 | Day surgery (SDC) | payer MEDICAID, SELFPAY ==
[2025-07-16] VITALS (11 sets, daily range): BP systolic 105–124; BP diastolic 65–87; PULSE 66–81; RESP 14–21; TEMP 36.1–36.4; O2SAT 91–97; BMI 32.3
--- NOTE | 2025-07-16 08:54 | P.HPUD_ITS ---
Surgery/Procedure H&P Update DATE OF PROCEDURE: July 16, 2025 DATE H&P PERFORMED: 06/26/25 H&P UPDATE INFORMATION: I have reviewed H&P completed within last 30 days, I have examined patient prior to procedure and No changes to prior documentation PLANNED PROCEDURE: Operation Date: 07/16/25 09:45 Proposed Procedures p Exam Under Anesthesia Exam Under Anesthesia Anus/Rectum 00654 24932 27349 K64. 9(Not Applicable) - Deonte Sims MD s POSSIBLE Hemorrhoid Banding(Not Applicable) - Deonte Sims MD s Possible Hemorrhoidectomy(Not Applicable) - Deonte Sims MD
--- NOTE | 2025-07-16 09:34 | ANES.PREANE2 ---
Pre-Anesthetic Assessment Height/Weight: Height 1.68 m Weight 90.718 kg Temp Pulse Resp BP Pulse Ox O2 Del Method 97.5 F L 68 18 123/87 97 Room Air 07/16/25 08:21 07/16/25 08:21 07/16/25 08:21 07/16/25 08:21 07/16/25 08:21 07/16/25 08:21 Operation Date: 07/16/25 09:45 Proposed Procedures p Exam Under Anesthesia Exam Under Anesthesia Anus/Rectum 84524 51771 96042 K64.9(Not Applicable) - Deonte Sims MD s POSSIBLE Hemorrhoid Banding(Not Applicable) - Deonte Sims MD s Possible Hemorrhoidectomy(Not Applicable) - Deonte Sims MD Familial anesthetic complications: None Was Beta Miky taken within 24 hours: N/A Was Clonidine taken within 24 hours: N/A Last intake: Intake Last Liquid Date 07/15/25 Last Liquid Time 20:00 Last Solid Date 07/15/25 Last Solid Time 21:30 Social No alcohol and No tobacco Exam alert, oriented x 3, clear to auscultation bilaterally and regular rate & rhythm Airway Mallampati: Class III Dentition: full Musc/skel Rheumatoid Arthritis Anesthetic Plan ASA status: 2 Anesthesia: General Risk of > 500 ml blood loss (7ml/kg in children): No Medications/Allergies Home Medications ?Medication ?Instructions ?Recorded ?Confirmed ?Last Taken ?Type folic acid 1 mg tablet 2 mg (2 x 1 mg) PO DAILY #180 tabs 05/07/25 07/15/25 07/15/25 Rx methotrexate sodium 2.5 mg tablet See Rx Instructions PO .week 05/07/25 07/15/25 07/12/25 Rx Rheumatoid Arthritis #150 tabs prednisone 5 mg tablet 5 mg PO DAILY #90 tabs 05/07/25 07/15/25 07/15/25 Rx sulfasalazine 500 mg tablet 0.5 g PO BID #60 tabs 05/07/25 07/15/25 07/15/25 Rx polyethylene glycol 3350 17 17 g PO DAILY PRN Constipation 06/23/25 07/15/25 06/21/25 History gram/dose oral powder (Miralax) Allergies Allergy/AdvReac Type Severity Reaction Status Date / Time No Known Drug Allergies Allergy Unknown Verified 07/15/25 09:17 Current Medications Generic Name Dose Route Start Last Admin Trade Name Kristianq PRN Reason Stop Dose Admin Sodium Chloride 1,000 mls @ 30 mls/hr 07/16/25 08:15 07/16/25 08:31 Sodium Chloride 0.9% IV 07/17/25 08:14 30 mls/hr .Q24H ROLA Administration PFSH Anesthesia Medical History (Updated 07/10/25 @ 10:20 by Deonte Sims MD) Immunization counseling High risk medication use Seronegative rheumatoid arthritis of both hands Surgical History S/P hysterectomy Family History Father Diabetes Hypercholesteremia Hypertension Mother Diabetes Hypercholesteremia Hypertension Sister Diabetes Denies family history of Colon cancer Ovarian cancer Prostate cancer Heart disease Breast cancer Uterine cancer Thyroid disease Stroke Social History Smoking and tobacco/nicotine status: former use of tobacco/nicotine
[2025-07-16] MEDS: BUPivacaine 0.25% INJ 10 mL INJECTION (10:41)
[2025-07-16] MEDS: thrombin 5,000 unit SDV 5000 UNIT XX (10:48)
--- NOTE | 2025-07-16 10:53 | P.OP_ITS ---
Operative Report Date of procedure: July 16, 2025 Pre-op diagnosis: Hemorrhoids Post-op diagnosis: same Post-op findings: Prominent right posterior and left hemorrhoidal columns Procedure done: Right posterior column hemorrhoidectomy. Left hemorrhoidal column rubber band ligation. Implants: N/A Specimens removed/disposition: Right posterior column hemorrhoid sent to pathology Pathology: Hemorrhoid sent to pathology Surgeon: Deonte Sims MD Fruit Picker Machine Operator: N/A Anesthesia: MAC Estimated blood loss (mL): 5 Complications: N/A Findings: Prominent right posterior and left hemorrhoidal columns Condition: stable Disposition: same day Brief History: 34-year-old female who presented with painful hemorrhoids. Discussed risk and benefits and patient agreed to proceed with exam under anesthesia of the rectum, possible hemorrhoidectomy, possible hemorrhoidal banding. Procedure: Patient was brought in to the operating room. MAC was induced. Patient positioned in left lateral decubitus. The perineum was prepped with betadine and draped. A timeout was performed. All present were in agreement. Retractor was used to examine the anus and patient had sizable hemorrhoids of the right posterior and left columns. The largest pillar was the right posterior column, which I proceeded to excise. The exterior most edge of the hemorrhoid was grabbed using an Allis clamp. Electrocautery was used to incise the anoderm and subsequently to dissect the hemorrhoid pack off the muscle layer. Dissection proceeded cephalad until the pedicle of the hemorrhoid was encountered. At this point, a 3-0 chromic stick-tie was used to ligate the hemorrhoidal pedicle. The specimen was passed off and sent to pathology. The 3-0 chromic was ran distally in order to close the mucosal defect as well as the anoderm. There was minimal bleeding. I proceeded to then perform band ligation of the left hemorrhoidal column. I grabbed the left internal hemorrhoid proximal to the dentate line and applied 1 band. There was no bleeding. Thrombin-soaked Gelfoam was then placed into the anus. Fluffs were applied on top and these were secured using mesh underwear. Patient tolerated procedure well.
--- NOTE | 2025-07-16 12:35 | ANE.PACU2 ---
Inpatient post-anesthesia follow up: Airway intact: Yes Vital signs: Temperature 97.3 F Pulse Rate 66 Respiratory Rate 17 Blood Pressure 113/83 Pulse Oximetry 93 Oxygen Delivery Me thod Room Air Oxygen Flow Rate 6 Fraction of Inspir ed Oxygen Hydration adequate: Yes Nausea and vomiting: No Pain level: 1 Mental status: Baseline
== END 2025-07-16 12:38 | disposition home or self-care (01) ==
PROVIDERS: PCP Nurse Practitioner Family; Visit Provider Student in an Organized Health Care Education/Training Program
PROC: (CPT 46255; principal; 2025-07-16 09:45)
PROC: (CPT 46221; 2025-07-16 09:45)
PROC: (CPT 46255; 2025-07-16 09:45)
DX: K64.8 Other hemorrhoids (principal); M06.9 Rheumatoid arthritis, unspecified; Z87.891 Personal history of nicotine dependence
CPT/HCPCS: 46255; 88304; A4216; J1100; J1885; J2250; J2405; J2704; J3010; J3490; J7030; J9999

== ENCOUNTER 2025-07-20 20:55 | Emergency (ER) | payer MEDICAID, SELFPAY ==
[2025-07-20 21:04] VITALS: BP 145/88; PULSE 75; TEMP 36.8; O2SAT 97; BMI 31.9
--- NOTE | 2025-07-20 23:52 | CTR_ITS ---
PROCEDURE INFORMATION: Exam: CT Abdomen And Pelvis With Contrast Exam date and time: 07/21/2025 12:13 AM Age: 35 years old Clinical indication: Fever and nausea and vomiting; Abdominal pain; Localized; Prior surgery; Surgery date: 3-7 days post-operative; Surgery type: Hemorrhoidectomy 07/16/2025. Hysterectomy; Lower abd pain with fever and n/v. ; Additional info: Post hemorrhoidectomy increased abdominal pain vomiting feve TECHNIQUE: Imaging protocol: Computed tomography of the abdomen and pelvis with contrast. Radiation optimization: All CT scans at this facility use at least one of these dose optimization techniques: automated exposure control; mA and/or kV adjustment per patient size (includes targeted exams where dose is matched to clinical indication); or iterative reconstruction. Contrast material: OMNI 350; Contrast volume: 100 ml; Contrast route: INTRAVENOUS (IV); COMPARISON: CT abdomen pelvis w con* [id number] 05/22/2024 4:41 PM RADIATION DOSE METRICS: Total DLP (mGy-cm): 863.16 FINDINGS: Liver: Normal. No mass. Gallbladder and biliary ducts: Normal. No calcified stones. No ductal dilation. Pancreas: Normal. No ductal dilation. Spleen: Normal. No splenomegaly. Adrenal glands: Normal. No mass. Kidneys and ureters: Normal. No hydronephrosis. Stomach and bowel: Unremarkable. No obstruction. No mucosal thickening. Appendix: No evidence of appendicitis. Intraperitoneal space: Unremarkable. No free air. No significant fluid collection. Vasculature: Unremarkable. No abdominal aortic aneurysm. Lymph nodes: Unremarkable. No enlarged lymph nodes. Urinary bladder: Unremarkable as visualized. Reproductive: A 5.2 cm simple fluid attenuating left adnexal cyst is present. A 3.6 cm simple fluid attenuating right adnexal cyst is present. The uterus is atrophic or absent. Bones/joints: Stable, Ill-defined 1.7 cm sclerotic lesion at L3 with narrow zone of transition and circumscribed borders. Degenerative joint and disc disease is seen in the imaged spine. Soft tissues: Unremarkable. CT/CT abdomen pelvis w con* [id number] IMPRESSION: 1. Simple appearing adnexal cyst in a premenopausal patient measuring greater than 5 cm. Ultrasound follow-up in 6-12 months is recommended[address] No CT evidence of acute ovarian torsion. However, if clinical concern for torsion is present, ultrasound could be obtained. (Reference: Ortega) 2. Ill-defined sclerotic lesion in the L3 vertebral body with benign imaging characteristics. Impression new. Sclerotic L3 vertebral body lesion, stable from 2023 with benign imaging characteristics. 3. Otherwise, no acute process in the abdomen or pelvis to explain the patient's symptoms. REFERENCES: Ortega et al. Management of Incidental Adnexal Findings on CT and MRI: A White Paper of the ACR Incidental Findings Committee, J Am Jarret Radiol. 2019;17(2):248-254.
[2025-07-21] MEDS: iohexol 350 mg/mL 500 mL Btl (per mL) IV (00:15)
[2025-07-21 00:17] LABS: Hematocrit 42.9 % (36-47); Hemoglobin 14.80 g/dL (11.27-16.99); Mean Corpuscular HGB Conc 34.5 g/dL (30-55); Mean Corpuscular Hemoglobin 30.2 pg (27-33); Mean Corpuscular Volume 87.6 fl (85-98); Nucleated Red Blood Cells % 0 %; Platelet Count 306 10^3/cmm (157-399); Red Blood Count 4.90 10^6/uL (3.85-5.65); White Blood Count 9.07 10^3/uL (3.29-11.43)
--- NOTE | 2025-07-21 01:03 | W.ED.RECABL ---
HPI - Recheck/Abnormal Lab/Rx General: Chief Complaint: Recheck/Abnormal Lab/Rx Stated Complaint: Post Surg, hole in stiches, N/V, Fever Time Seen by Provider: 07/20/25 23:17 History of Present Illness: Patient is a 35-year-old female who underwent hemorrhoidectomy on Monday (4 days ago). She reports that initially post-procedure she had no problems, but yesterday she developed redness in the anal area. She has been unable to hold down food or liquids due to vomiting. Patient reports a 'little hole' in the rectal area that appears infected. She notes a small amount of bleeding from the site. The patient describes increased pain in the rectal area compared to her immediate post-operative course. She reports low-grade fevers, with temperatures ranging from 100-101?F. Additionally, she complains of diffuse abdominal pain and cramping throughout the day, which has been severe enough to keep her bedridden, which she states is unusual for her. She denies cough or congestion. Patient states she 'just hasn't felt normal' and has been unable to get out of bed today. Related Data Home Medications ?Medication ?Instructions ?Recorded ?Confirmed polyethylene glycol 3350 17 17 g PO DAILY PRN Constipation 06/23/25 07/15/25 gram/dose oral powder (Miralax) Previous Rx's ?Medication ?Instructions ?Recorded folic acid 1 mg tablet 2 mg (2 x 1 mg) PO DAILY #180 tabs 05/07/25 methotrexate sodium 2.5 mg tablet See Rx Instructions PO .week 05/07/25 Rheumatoid Arthritis #150 tabs prednisone 5 mg tablet 5 mg PO DAILY #90 tabs 05/07/25 sulfasalazine 500 mg tablet 0.5 g PO BID #60 tabs 05/07/25 acetaminophen 500 mg tablet 1,000 mg (2 x 500 mg) PO TID 5 07/16/25 (Tylenol Extra Strength) days #30 tabs bisacodyl 5 mg tablet,delayed 5 mg PO BID 30 days #60 tabs 07/16/25 release (Dulcolax (bisacodyl)) ibuprofen 800 mg tablet 800 mg PO Q6H 5 days #20 tabs 07/16/25 oxycodone 5 mg tablet 5 mg PO Q6H PRN pain 10 days #30 07/16/25 tabs ondansetron 4 mg disintegrating 4 mg PO Q6H PRN nausea and 07/21/25 tablet vomiting #14 tabs Allergies Allergy/AdvReac Type Severity Reaction Status Date / Time No Known Drug Allergies Allergy Unknown Verified 07/20/25 21:09 [facility] PFSH: Medical History Immunization counseling High risk medication use Seronegative rheumatoid arthritis of both hands Surgical History S/P hysterectomy Family History Father Diabetes Hypercholesteremia Hypertension Mother Diabetes Hypercholesteremia Hypertension Sister Diabetes Denies family history of Colon cancer Ovarian cancer Prostate cancer Heart disease Breast cancer Uterine cancer Thyroid disease Stroke Social History Smoking and tobacco/nicotine status: former use of tobacco/nicotine Physical Exam Const: COMMON NORMALS: no acute distress GENERAL APPEARANCE: cooperative and ill appearing (Mildly); not frail appearing HENMT: COMMON NORMALS: normocephalic, atraumatic and Normal external nose present HEAD & SCALP: normocephalic and atraumatic FACE & SINUS: normal facial exam and face symmetric NOSE: Normal external nose present Eye: COMMON NORMALS: Equal, round and reactive pupils present and EOMs intact bilaterally PUPIL: Yes Equal, round and reactive pupils present Neck/C-Spine: GENERAL: Yes trachea midline Chest: CHEST: Yes Symmetrical chest wall rise Resp: COMMON NORMALS: normal respiratory effort, No retractions, No use of accessory muscles and clear to auscultation bilaterally AUSCULTATION: clear to auscultation bilaterally Cardio: COMMON NORMALS: regular rate and regular rhythm RATE: regular rate RHYTHM: regular rhythm GI: COMMON NORMALS: Normal to inspection, nondistended, normoactive bowel sounds present INSPECTION: No Laceration(s) present (GI) RECTAL EXAM: No Rectal prolapse, no fissure noted and no laceration(s) noted Extremity: COMMON NORMALS: no pedal edema Neuro: GUERITA COMA SCALE: document GCS findings Guerita coma scale eye opening: Spontaneous Guerita coma scale verbal response: Orientated Guerita coma scale motor response: Obey commands Guerita coma scale total score: 15 SENSORY EXAM: Yes extremities (intact) Psych: COMMON NORMALS: speech normal SPEECH: Yes normal speech Skin: COMMON NORMALS: no rashes or lesions noted GENERAL SKIN EXAM: no rashes or lesions noted Course Vital Signs: Vital signs: Vital Signs Temperature 98.2 F 07/20/25 21:04 Pulse Rate 77 07/21/25 03:01 Respiratory Rate 16 07/21/25 03:01 Blood Pressure 145/88 07/20/25 21:04 Pulse Oximetry 95 07/21/25 03:01 Oxygen Delivery Me thod Room Air 07/21/25 02:20 MDM - Recheck/Abnormal Lab/Rx Medical Decision Making 35-year-old female with pelvic pain, fevers, vomiting following hemorrhoid surgery. Rectal exam is not concerning. She is afebrile here. CBC and BMP are normal.. CRP is 18. Urinalysis is negative. Lipase is 22. CT reveals a simple adnexal cyst measuring 5 cm or more. No other acute changes. She is feeling somewhat improved after morphine and Zofran here. She is getting a liter bolus. She will go home on Zofran. She has pain medication at home. She will return for any problems. She will call her surgeon tomorrow, as they may wish to see her before her scheduled appointment for follow-up. Lab Data 07/20/25 00:05 07/20/25 00:05 Radiology Impressions Abdomen/Pelvis CT 07/20/25 23:52 IMPRESSION: 1. Simple appearing adnexal cyst in a premenopausal patient measuring greater than 5 cm. Ultrasound follow-up in 6-12 months is recommended[address] No CT evidence of acute ovarian torsion. However, if clinical concern for torsion is present, ultrasound could be obtained. (Reference: Ortega) 2. Ill-defined sclerotic lesion in the L3 vertebral body with benign imaging characteristics. Impression new. Sclerotic L3 vertebral body lesion, stable from 2023 with benign imaging characteristics. 3. Otherwise, no acute process in the abdomen or pelvis to explain the patient's symptoms. REFERENCES: Ortega et al. Management of Incidental Adnexal Findings on CT and MRI: A White Paper of the ACR Incidental Findings Committee, J Am Jarret Radiol. 2019;17(2):248-254. Laboratory Results WBC 9.07 10^3/uL (3.29-11.43) 07/20/25 00:05 RBC 4.90 10^6/uL (3.85-5.65) 07/20/25 00:05 Hgb 14.80 g/dL (11.27-16.99) 07/20/25 00:05 Hct 42.9 % (36-47) 07/20/25 00:05 MCV 87.6 fl (85-98) 07/20/25 00:05 MCH 30.2 pg (27-33) 07/20/25 00:05 MCHC 34.5 g/dL (30-55) 07/20/25 00:05 RDW 12.9 % (12.1-15.1) 07/20/25 00:05 Plt Count 306 10^3/cmm (157-399) 07/20/25 00:05 MPV 9.8 fL (7.4-10.4) 07/20/25 00:05 Neut % (Auto) 60.4 % 07/20/25 00:05 Lymph % (Auto) 30.3 % 07/20/25 00:05 [place] % (Auto) 6.8 % 07/20/25 00:05 Eos % (Auto) 1.5 % 07/20/25 00:05 Baso % (Auto) 0.3 % 07/20/25 00:05 Neut # (Auto) 5.47 10^3/uL (1.8-7.7) 07/20/25 00:05 Lymph # (Auto) 2.8 10^3/uL (0.8-4.8) 07/20/25 00:05 [place] # (Auto) 0.6 10^3/uL (0.2-0.9) 07/20/25 00:05 Eos # (Auto) 0.1 10^3/uL (0.0-0.8) 07/20/25 00:05 Baso # (Auto) 0.0 10^3/uL (0.0-0.1) 07/20/25 00:05 Nucleated RBC % (auto) 0 % 07/20/25 00:05 Nucleated RBCs # 0.0 /100WBC 07/20/25 00:05 Sodium 137 mmol/L (136-145) 07/20/25 00:05 Potassium 4.0 mmol/L (3.5-5.1) 07/20/25 00:05 Chloride 101 mmol/L (98-107) 07/20/25 00:05 Carbon Dioxide 25 mmol/L (22-29) 07/20/25 00:05 Anion Gap 15.0 (5-19) 07/20/25 00:05 BUN 17 mg/dL (6-20) 07/20/25 00:05 Creatinine 0.7 mg/dL (0.5-0.9) 07/20/25 00:05 GFR Calculation 95.2 mL/min (90-130) 07/20/25 00:05 Glucose 98 mg/dL (65-115) 07/20/25 00:05 Calculated Osmolality 286 mOsm/kg (285-295) 07/20/25 00:05 Calcium 9.1 mg/dL (8.5-10.5) 07/20/25 00:05 Total Bilirubin 0.5 mg/dL (0.15-1.2) 07/20/25 00:05 AST 11 U/L (0-32) 07/20/25 00:05 ALT 14 U/L (0-33) 07/20/25 00:05 Alkaline Phosphatase 67 U/L (35-105) 07/20/25 00:05 C-Reactive Protein 17.9 mg/L (0.0-4.9) H 07/20/25 00:05 Total Protein 7.2 g/dL (6.6-8.7) 07/20/25 00:05 Albumin 4.4 g/dL (3.5-5.2) 07/20/25 00:05 Globulin 2.8 g/dL (1.3-4.6) 07/20/25 00:05 Lipase 22 U/L (13-60) 07/20/25 00:05 Urine Color Yellow (Yellow) 07/21/25 01:04 Urine Appearance Clear (CLEAR) 07/21/25 01:04 Urine pH 5.0 (5-7) 07/21/25 01:04 Ur Specific [place] 1.070 (1.005-1.030) H 07/21/25 01:04 Urine Protein Negative (Negative) 07/21/25 01:04 Urine Glucose (UA) Negative (Normal) 07/21/25 01:04 Urine Ketones Negative (Negative) 07/21/25 01:04 Urine Blood Non-haemolysed trace (Negative) 07/21/25 01:04 Urine Nitrate Negative (Negative) 07/21/25 01:04 Urine Bilirubin Negative (Negative) 07/21/25 01:04 Urine Urobilinogen 0.2 mg/dL (Negative) 07/21/25 01:04 Ur Leukocyte Esterase Negative (Negative) 07/21/25 01:04 Urine RBC 0-2 /hpf (0-2) 07/21/25 01:04 Urine WBC 0-5 /hpf (0-5) 07/21/25 01:04 Ur Squamous Epith Cells 6-10 /hpf (0-5) 07/21/25 01:04 Amorphous Sediment Not Reportable 07/21/25 01:04 Urine Bacteria 1+ /hpf (NONE) H 07/21/25 01:04 Hyaline Casts 0.81 /lpf 07/21/25 01:04 All radiology interpretation(s) finalized by discharge Discharge Plan Discharge Patient Disposition: Home Clinical Impression: Ovarian cyst, Status post hemorrhoidectomy Condition: Stable Prescriptions: New ondansetron 4 mg tablet,disintegrating 4 mg PO Q6H PRN (Reason: nausea and vomiting) Qty: 14 0RF No Action folic acid 1 mg tablet 2 mg PO DAILY Qty: 180 1RF sulfasalazine 500 mg tablet 0.5 g PO BID Qty: 60 4RF methotrexate sodium 2.5 mg tablet See Rx Instructions PO .week Qty: 150 0RF Rx Instructions: Split dose.. take 10 tabs on the same day once a week, take 5 tabs in the AM and 5 tabs in the PM- pt takes on saturdays prednisone 5 mg tablet 5 mg PO DAILY Qty: 90 1RF ibuprofen 800 mg tablet 800 mg PO Q6H 5 Days Qty: 20 0RF acetaminophen [Tylenol Extra Strength] 500 mg tablet 1,000 mg PO TID 5 Days Qty: 30 0RF bisacodyl [Dulcolax (bisacodyl)] 5 mg tablet,delayed release (DR/EC) 5 mg PO BID 30 Days Qty: 60 0RF oxycodone 5 mg tablet 5 mg PO Q6H PRN (Reason: pain) 10 Days Qty: 30 0RF polyethylene glycol 3350 [Miralax] 17 gram/dose powder 17 g PO DAILY PRN (Reason: Constipation) Discharge Orders: Discharge ED (Routine); Ordered 07/21/25 Ordered By: Wagner Renteria Referrals: Imelda Gross FNP [Primary Care Provider, [facility]] Patient Instructions: Ovarian Cyst (ED), Opioid Safety, Pain Management, Patient Portal & Jonathon Instructions Activity Restrictions/Additional Instructions: Take nausea medicine scheduled every 4 hours while awake for the first 24 hours, then as needed. Take your pain medication scheduled tomorrow as well. Drink plenty of liquids. Return for any problems including continued fever, continued vomiting, worsening pain, etc. Call your surgeon tomorrow as they may wish to see you sooner than your scheduled appointment. 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
[2025-07-21 01:07] LABS: Alanine Aminotransferase 14 U/L (0-33); Albumin Level 4.4 g/dL (3.5-5.2); Alkaline Phosphatase 67 U/L (35-105); Anion Gap 15.0 (5-19); Aspartate Amino Transferase 11 U/L (0-32); Blood Urea Nitrogen 17 mg/dL (6-20); Calcium 9.1 mg/dL (8.5-10.5); Carbon Dioxide 25 mmol/L (22-29); Chloride 101 mmol/L (98-107); Creatinine Clr Calc Pharmacy 126.6224; Globulin 2.8 g/dL (1.3-4.6); Glucose 98 mg/dL (65-115); Lipase 22 U/L (13-60); Osmolality Calculated 286 mOsm/kg (285-295); Potassium 4.0 mmol/L (3.5-5.1); Sodium 137 mmol/L (136-145); Total Protein 7.2 g/dL (6.6-8.7)
[2025-07-21 01:28] LABS: Glucose Urine UA Negative (Normal); Nitrate Urine Negative (Negative)
[2025-07-21 01:30] LABS: Add Urine Microscopic? YES
[2025-07-21] MEDS: ondansetron 2 mg/ML SDV 2 mL 4 MG IVP (01:32)
[2025-07-21 01:33] LABS: Specific Gravity, Urine 1.070 (1.005-1.030)
[2025-07-21] MEDS: morphine 4 mg/mL SDV 1 mL IVP (01:33)
[2025-07-21 01:39] VITALS: PULSE 63; RESP 16; O2SAT 93
[2025-07-21 02:20] VITALS: PULSE 77; RESP 16; O2SAT 95
[2025-07-21 03:01] VITALS: PULSE 77; RESP 16; O2SAT 95
== END 2025-07-21 02:27 | disposition home or self-care (01) ==
PROVIDERS: Emergency Provider Emergency Medicine; PCP Nurse Practitioner Family
DX: N83.202 Unspecified ovarian cyst, left side (principal); Z98.890 Other specified postprocedural states; Z87.891 Personal history of nicotine dependence
CPT/HCPCS: 74177; 80053; 81001; 83690; 85025; 86140; 96374; 96375; 99285; J1885; J2270; J2405; J7030

== ENCOUNTER → 2025-09-22 12:46 | Outpatient (BNVA) | payer MEDICAID, SELFPAY | PROVIDERS: PCP Nurse Practitioner Family; Visit Provider Internal Medicine Rheumatology | DX: Z79.899 Other long term (current) drug therapy (principal); M06.041 Rheumatoid arthritis without rheumatoid factor, right hand; M06.042 Rheumatoid arthritis without rheumatoid factor, left hand | CPT/HCPCS: 36415; 80076; 82565; 85025; 85651; 86140 ==

== ENCOUNTER → 2025-09-24 13:17 | Outpatient (BNVA) | payer MEDICAID, SELFPAY | PROVIDERS: PCP Nurse Practitioner Family; Visit Provider Nurse Practitioner Family | DX: R51.9 Headache, unspecified (principal) | CPT/HCPCS: 80048 ==

== ENCOUNTER → 2025-10-01 08:29 | Outpatient (BNVA) | payer MEDICAID, SELFPAY | PROVIDERS: PCP Nurse Practitioner Family; Visit Provider Nurse Practitioner Family | DX: R73.09 Other abnormal glucose (principal) | CPT/HCPCS: 83036 ==

== ENCOUNTER 2025-10-27 16:57 | Emergency (ER) | payer MEDICAID, SELFPAY ==
[2025-10-27 17:03] VITALS: BP 191/79; PULSE 76; RESP 18; TEMP 36.7; O2SAT 98
--- NOTE | 2025-10-27 17:08 | CTR_ITS ---
PROCEDURE INFORMATION: Exam: CT Head Without Contrast Exam date and time: 10/27/2025 6:13 PM Age: 35 years old Clinical indication: Syncope and collapse; Additional info: Syncope, headache TECHNIQUE: Imaging protocol: Computed tomography of the head without contrast. Radiation optimization: All CT scans at this facility use at least one of these dose optimization techniques: automated exposure control; mA and/or kV adjustment per patient size (includes targeted exams where dose is matched to clinical indication); or iterative reconstruction. COMPARISON: No relevant prior studies available. RADIATION DOSE METRICS: Total DLP (mGy-cm): 1084.95 FINDINGS: Brain: Normal. No hemorrhage. Unremarkable white matter. No mass effect. Cerebral ventricles: No ventriculomegaly. Paranasal sinuses: Visualized sinuses are unremarkable. No fluid levels. Mastoid air cells: Visualized mastoid air cells are well aerated. Bones: Unremarkable. No acute fracture. Soft tissues: Unremarkable. CT/CT head wo con* [id number] IMPRESSION: No acute intracranial abnormality.
--- NOTE | 2025-10-27 17:09 | W.ED.HA ---
HPI - Headache General: Chief Complaint: Headache Stated Complaint: CASTRO, SYNCOPE Time Seen by Provider: 10/27/25 17:09 Source: patient Mode of arrival: ambulatory Limitations: no limitations History of Present Illness: Patient is a 35-year-old female presents to ED today with a complaint of headache and syncope. Patient states she has been having syncopal episodes over the past year. She states she will have one approximately every 2 months or so. She states before episode she will get spots in her vision and sometimes feels like she gets palpitations. Patient states she blacks out for approximately 10 seconds or so. No seizure-like activity or postictal period. She states in between episodes she is asymptomatic. She has not noticed any exertional or exercise intolerance. No episodes of chest pain or difficulty breathing. She has not seen her primary care provider for this complaint previously. She also has a complaint of excessive bruising present over the past 2 months or so. She is reporting almost daily headaches. She states her blood pressures have been elevated. Blood pressure upon arrival was 191/79. During my initial examination it is 169/80s. She feels like her scalp sweeney. She does not feel there is any correlation with her headaches and her syncopal episodes. She is not having any neck pain. No fevers. No previous history of migraines. MD elicited complaint: headache and other (syncopal episodes ) Onset (ago): month(s) Location: generalized Severity: moderate Pain scale (0-10): 7 Exacerbating factors: light Relieving factors: dark room Context: occurred at rest Associated symptoms: Reports syncope; Deny chest pain, confusion, fever(s), malaise, nausea, rash or vomiting Treatments prior to arrival: none Related Data Previous Rx's ?Medication ?Instructions ?Recorded folic acid 1 mg tablet 2 mg (2 x 1 mg) PO DAILY #180 tabs 05/07/25 adalimumab 40 mg/0.4 mL 40 mg (0.4 mL) SUBCUT Q14D #2 ea 09/22/25 subcutaneous pen kit (Humira(CF) Pen) methotrexate sodium 25 mg/mL 25 mg SUBCUT .Q7days #10 mL 09/22/25 injection solution ondansetron HCl 8 mg tablet 8 mg PO Q8H PRN nausea and 09/22/25 vomiting #30 tabs prednisone 20 mg tablet See Rx Instructions PO .COMPLEX 09/22/25 PRN joint pain flare #30 tabs prednisone 5 mg tablet 5 mg PO DAILY #90 tabs 09/22/25 Allergies Allergy/AdvReac Type Severity Reaction Status Date / Time No Known Drug Allergies Allergy Unknown Verified 08/07/25 07:59 Review of Systems Const: Denies: fever(s), chills, body aches, fatigue or malaise Eyes: Reports: change in vision (right before syncopal episode-otherwise none); Denies: blind spots or photophobia ENMT: Denies: throat pain, odynophagia, swelling of lips/tongue, oral sores, dental pain, ear or mastoid pain, nasal discharge, nasal congestion or sinus pain Card: Reports: palpitations (before syncope-otherwise none) and syncope; Denies: chest pain, irregular heart rhythm, swelling of feet/ankles, dyspnea on exertion, orthopnea, leg pain with exertion or acrocyanosis Resp: Denies: dyspnea, productive cough, non-productive cough, wheezing or chest congestion GI: Denies: abdominal pain, nausea, vomiting or diarrhea : Denies: flank pain, dysuria or hematuria Musc: Denies: neck pain, back pain, extremity pain, extremity swelling, joint pain, joint swelling or joint redness Skin/Breast: Denies: rash Neuro: Reports: headache(s); Denies: numbness in extremities, weakness in extremities, sensory changes, lack of coordination, difficulty walking, frequent falls, dizziness, vertigo, confusion, behavioral changes, Slurred speech present, difficulty communicating thoughts, seizure-like activity or involuntary movements Psych: Denies: anxiety PFSH ED PFSH: Medical History Immunization counseling High risk medication use Seronegative rheumatoid arthritis of both hands Surgical History S/P hysterectomy Family History Father Diabetes Hypercholesteremia Hypertension Mother Diabetes Hypercholesteremia Hypertension Sister Diabetes Denies family history of Colon cancer Ovarian cancer Prostate cancer Heart disease Breast cancer Uterine cancer Thyroid disease Stroke Social History Smoking and tobacco/nicotine status: never used tobacco/nicotine Physical Exam Const: COMMON NORMALS: no acute distress, average body habitus, patient oriented x3, no limitations, healthy appearing, alert and well nourished GENERAL APPEARANCE: cooperative ORIENTATION/CONSCIOUSNESS: Yes awake, Yes oriented to person, Yes oriented to place and Yes oriented to time HENMT: COMMON NORMALS: normocephalic and atraumatic HEAD & SCALP: normal to inspection, normocephalic and atraumatic FACE & SINUS: normal facial exam, sinuses nontender and face symmetric Eye: COMMON NORMALS: Equal, round and reactive pupils present and EOMs intact bilaterally GENERAL EYE: appearance normal, both eyes and all related structures and normal light reflex PUPIL: Yes Equal, round and reactive pupils present DIRECT OPHTHALMOSCOPY: Yes normal light reflex Neck/C-Spine: COMMON NORMALS: full ROM, no lymphadenopathy and no meningeal signs GENERAL: Yes normal visual inspection Chest: COMMONS NORMALS: normal inspection of the chest and normal palpation of entire chest wall Resp: COMMON NORMALS: normal respiratory effort and clear to auscultation bilaterally AUSCULTATION: clear to auscultation bilaterally Cardio: COMMON NORMALS: regular rate and regular rhythm RATE: regular rate RHYTHM: regular rhythm : COMMON NORMALS: Yes no CVA tenderness BLADDER/KIDNEY EXAM: Yes no CVA tenderness Back/Pelvis: COMMON NORMALS: no CVA tenderness Extremity: COMMON NORMALS: capillary refill normal, no clubbing, cyanosis or edema, no calf tenderness and no pedal edema GENERAL: Yes normal exam except as noted Neuro: GUERITA COMA SCALE: document GCS findings [place] coma scale eye opening: Spontaneous [place] coma scale verbal response: Orientated [place] coma scale motor response: Obey commands Guerita coma scale total score: 15 COMMON NORMALS: patient oriented x3, CN's II-XII intact bilaterally, moves all extremities, no sensory deficits noted and gait normal SENSORIUM/ORIENTATION: Yes alert, Yes oriented to person, Yes oriented to place and Yes oriented to time MENINGEAL SIGNS: Yes no meningeal signs Skin: COMMON NORMALS: no rashes or lesions noted GENERAL SKIN EXAM: no rashes or lesions noted Course Vital Signs: Vital signs: Vital Signs Temperature 98.1 F 10/27/25 17:03 Pulse Rate 65 10/27/25 18:01 Respiratory Rate 18 10/27/25 17:03 Blood Pressure 121/75 10/27/25 18:01 Pulse Oximetry 96 10/27/25 18:01 Oxygen Delivery Me thod Room Air 10/27/25 18:01 MDM - Headache Medical Decision Making Patient is a 35-year-old female here for syncopal episodes that have been occurring over the past year. She has had a total of 6 episodes. She does feel like her vision gets fuzzy and she has palpitations prior to syncope. Will set her up for Holter monitor/cardiology follow up for rule out cardiac origin for her syncope. EKG normal today. Certainly this could be psychogenic, vasovagal, among others. She is also here with a complaint of a headache. She has been having headaches over the past 2 months or so. No acute neurologic deficits. CT head was unremarkable. Blood work here was unremarkable. She initially arrived very hypertensive (coudl be etiology for her headache) but this quickly resolved without any intervention and she is now 121/75 at time of discharge. Recommend she keep a blood pressure log and continue to follow-up with primary care. Headache vastly improved with toradol/acetaminophen. Patient will be allowed discharge with return precautions. Differential Diagnosis Likely migraine, tension headache and headache Medical Records I reviewed the patient's medical records. Lab Data I reviewed the patient's lab results. 10/27/25 17:30 10/27/25 17:[address] 10/27/25 17:08 IMPRESSION: No acute intracranial abnormality. Chest X-Ray 10/27/25 17:38 IMPRESSION: No acute findings. Laboratory Results WBC 10.15 10^3/uL (3.29-11.43) 10/27/25 17:30 RBC 4.63 10^6/uL (3.85-5.65) 10/27/25 17:30 Hgb 13.90 g/dL (11.27-16.99) 10/27/25 17:30 Hct 41.4 % (36-47) 10/27/25 17:30 MCV 89.4 fl (85-98) 10/27/25 17:30 MCH 30.0 pg (27-33) 10/27/25 17:30 MCHC 33.6 g/dL (30-55) 10/27/25 17:30 RDW 12.5 % (12.1-15.1) 10/27/25 17:30 Plt Count 336 10^3/cmm (157-399) 10/27/25 17:30 MPV 9.8 fL (7.4-10.4) 10/27/25 17:30 Neut % (Auto) 65.0 % 10/27/25 17:30 Lymph % (Auto) 26.9 % 10/27/25 17:30 Hend[place] % (Auto) 6.3 % 10/27/25 17:30 Eos % (Auto) 0.9 % 10/27/25 17: Baso % (Auto) 0.4 % 10/27/25 17:30 Neut # (Auto) 6.60 10^3/uL (1.8-7.7) 10/27/25 17: Lymph # (Auto) 2.7 10^3/uL (0.8-4.8) 10/27/25 17:30 [place] # (Auto) 0.6 10^3/uL (0.2-0.9) 10/27/25 17:30 Eos # (Auto) 0.1 10^3/uL (0.0-0.8) 10/27/25 17: Baso # (Auto) 0.0 10^3/uL (0.0-0.1) 10/27/25 17: Nucleated RBC % (auto) 0 % 10/27/25 17: Nucleated RBCs # 0.0 /100WBC 10/27/25 17:30 Sodium 140 mmol/L (136-145) 10/27/25 17:30 Potassium 3.9 mmol/L (3.5-5.1) 10/27/25 17:30 Chloride 104 mmol/L (98-107) 10/27/25 17:30 Carbon Dioxide 24 mmol/L (22-29) 10/27/25 17:30 Anion Gap 15.9 (5-19) 10/27/25 17:30 BUN 11 mg/dL (6-20) 10/27/25 17:30 Creatinine 0.8 mg/dL (0.5-0.9) 10/27/25 17:30 GFR Calculation 81.6 mL/min (90-130) L 10/27/25 17:30 Glucose 90 mg/dL (65-115) 10/27/25 17:30 Calculated Osmolality 289 mOsm/kg (285-295) 10/27/25 17:30 Calcium 8.8 mg/dL (8.5-10.5) 10/27/25 17:30 Total Bilirubin 0.3 mg/dL (0.15-1.2) 10/27/25 17:30 AST 22 U/L (0-32) 10/27/25 17:30 ALT 32 U/L (0-33) 10/27/25 17:30 Alkaline Phosphatase 68 U/L (35-105) 10/27/25 17:30 Total Protein 6.5 g/dL (6.6-8.7) L 10/27/25 17:30 Albumin 4.2 g/dL (3.5-5.2) 10/27/25 17:30 Globulin 2.3 g/dL (1.3-4.6) 10/27/25 17:30 HCG, Qual Negative (Negative) 10/27/25 17:30 Urine Color Yellow (Yellow) 10/27/25 17:52 Urine Appearance Clear (CLEAR) 10/27/25 17:52 Urine pH 5.5 (5-7) 10/27/25 17:52 Ur Specific [place] 1.004 (1.005-1.030) L 10/27/25 17:52 Urine Protein Negative (Negative) 10/27/25 17:52 Urine Glucose (UA) Negative (Normal) 10/27/25 17:52 Urine Ketones Negative (Negative) 10/27/25 17:52 Urine Blood Negative (Negative) 10/27/25 17:52 Urine Nitrate Negative (Negative) 10/27/25 17:52 Urine Bilirubin Negative (Negative) 10/27/25 17:52 Urine Urobilinogen 0.2 mg/dL (Negative) 10/27/25 17:52 Ur Leukocyte Esterase Negative (Negative) 10/27/25 17:52 Urine RBC 0-2 /hpf (0-2) 10/27/25 17:52 Urine WBC 0-5 /hpf (0-5) 10/27/25 17:52 Ur Squamous Epith Cells 0-5 /hpf (0-5) 10/27/25 17:52 Amorphous Sediment Not Reportable 10/27/25 17:52 Urine Bacteria None seen /hpf (NONE) 10/27/25 17:52 Hyaline Casts 1.21 /lpf 10/27/25 17:52 Urine Opiates Screen Negative ng/mL (Negative) 10/27/25 17:52 Ur Barbiturates Screen Negative ng/mL (Negative) 10/27/25 17:52 Ur Phencyclidine Scrn Negative ng/mL (Negative) 10/27/25 17:52 Ur Amphetamines Screen Negative ng/mL (Negative) 10/27/25 17:52 U Benzodiazepines Scrn Negative ng/mL (Negative) 10/27/25 17:52 Urine Cocaine Screen Negative ng/mL (Negative) 10/27/25 17:52 U Marijuana (THC) Screen Negative ng/mL (Negative) 10/27/25 17:52 All radiology interpretation(s) finalized by discharge EKG Data EKG 1: EKG interpretation date: 10/27/25 EKG interpretation time: 18:35 Interpretation: Normal sinus rhythm Rate [address] elevation or depression changes noted Normal QTc Discharge Plan Discharge Patient Disposition: Home Clinical Impression: Syncope Qualifiers: Syncope type: unspecified Qualified Code(s): R55 - Syncope and collapse Headache Qualifiers: Headache type: unspecified Headache chronicity pattern: acute headache Intractability: not intractable Qualified Code(s): R51.9 - Headache, unspecified Condition: Stable Prescriptions: No Action methotrexate sodium 25 mg/mL solution 25 mg SUBCUT .Q7days Qty: 10 1RF prednisone 5 mg tablet 5 mg PO DAILY Qty: 90 1RF ondansetron HCl 8 mg tablet 8 mg PO Q8H PRN (Reason: nausea and vomiting) Qty: 30 1RF prednisone 20 mg tablet See Rx Instructions PO .COMPLEX PRN (Reason: joint pain flare) Qty: 30 1RF Rx Instructions: take 2 tab daily for up to 7 days as needed for arthritis flare PO PRN; Humira(CF) Pen 40 mg/0.4 mL pen injector kit 40 mg SUBCUT Q14D Qty: 2 5RF folic acid 1 mg tablet 2 mg PO DAILY Qty: 180 1RF Discharge Orders: Discharge ED (Routine); Ordered 10/27/25 Ordered By: Jana Mccoy Referrals: Imelda Gross FNP [Primary Care Provider, Family Practice] Patient Instructions: Patient Portal & Jonathon Instructions Activity Restrictions/Additional Instructions: As we discussed, continue to keep blood pressure log and follow-up with primary care. We will place a case management referral to get you set up with a Holter monitor and follow-up with cardiology to rule out cardiac etiology for your syncope. He may return to the emergency department at any time for any further concerns you may have. Hope you begin to feel better soon. 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
[2025-10-27 17:37] LABS: Hematocrit 41.4 % (36-47); Hemoglobin 13.90 g/dL (11.27-16.99); Mean Corpuscular HGB Conc 33.6 g/dL (30-55); Mean Corpuscular Hemoglobin 30.0 pg (27-33); Mean Corpuscular Volume 89.4 fl (85-98); Nucleated Red Blood Cells % 0 %; Platelet Count 336 10^3/cmm (157-399); Red Blood Count 4.63 10^6/uL (3.85-5.65); White Blood Count 10.15 10^3/uL (3.29-11.43)
--- NOTE | 2025-10-27 17:38 | XRR_ITS ---
PROCEDURE INFORMATION: Exam: XR Chest Exam date and time: 10/27/2025 5:53 PM Age: 35 years old Clinical indication: Other: Syncope TECHNIQUE: Imaging protocol: Radiologic exam of the chest. Views: 1 view. COMPARISON: CR XR chest 2V* [id number] 01/23/2020 11:58 PM FINDINGS: Lungs: Unremarkable. No consolidation. Pleural spaces: Unremarkable. No pleural effusion. No pneumothorax. Heart/Mediastinum: Unremarkable. No cardiomegaly. Bones/joints: Unremarkable. XR/XR chest 1V portable [id number] IMPRESSION: No acute findings.
[2025-10-27 17:56] LABS: HCG, Serum Qual Negative (Negative)
[2025-10-27 17:58] VITALS: BP 121/75
[2025-10-27] MEDS: acetaminophen 1,000 MG/100 ML PIGGYBACK 400 MG IV (17:58)
[2025-10-27 18:01] VITALS: BP 121/75; PULSE 65; O2SAT 96
[2025-10-27 18:08] LABS: Glucose Urine UA Negative (Normal); Nitrate Urine Negative (Negative); Specific Gravity, Urine 1.004 (1.005-1.030)
[2025-10-27 18:12] LABS: Add Urine Microscopic? YES
[2025-10-27 18:14] LABS: PCP Screen Urine Negative (Negative)
[2025-10-27 18:29] LABS: Alanine Aminotransferase 32 U/L (0-33); Albumin Level 4.2 g/dL (3.5-5.2); Alkaline Phosphatase 68 U/L (35-105); Anion Gap 15.9 (5-19); Aspartate Amino Transferase 22 U/L (0-32); Blood Urea Nitrogen 11 mg/dL (6-20); Calcium 8.8 mg/dL (8.5-10.5); Carbon Dioxide 24 mmol/L (22-29); Chloride 104 mmol/L (98-107); Globulin 2.3 g/dL (1.3-4.6); Glucose 90 mg/dL (65-115); Osmolality Calculated 289 mOsm/kg (285-295); Potassium 3.9 mmol/L (3.5-5.1); Sodium 140 mmol/L (136-145); Total Protein 6.5 g/dL (6.6-8.7)
--- NOTE | 2025-10-27 18:35 | ECG_ITS ---
[facility] Test Date: 2025-10-27 Pat Name: Alma Delia Pizano Department: Room: Gender: Female [employer] Specialist: : 1990 Requested By: Jana Mccoy Order Number: [id number] Gustavo MD: Foreign Bhakta M.D. Measurements Intervals [place] Rate: 67 P: 25 AL: 178 QRS: 31 QRSD: 85 T: 8 QT: 407 QTc: 433 Interpretive Statements SINUS RHYTHM Non diagnostic T wave changes Compared to ECG 05/09/2019 11:48:55 Sinus arrhythmia no longer present Electronically Signed On 10-28-2025 21:48:16 AIRPORT MANAGER by Foreign Bhakta M.D. [email or web address]
[2025-10-27 18:53] VITALS: BP 100/71; PULSE 75; O2SAT 96
--- OUTSIDE RECORDS SUMMARY | 2025-10-27 19:28 | XMS_ITS | Data Portability ---
Author Organization GIOVANNY Perez Moura [facility], JoyceDUTCH [facility] Address [address] [facility] [address] [place] [address] Assessment No assessment recorded. Plan of Treatment Reminders Order Date Submit Date Provider Last Modified By Organization Details Last Modified Time Details Appointments None recorded. Lab pap, LB + HR HPV 2022 023 tammy Todd [facility], [address] [facility] [address], [place], [address], 3 13:45:43 daniel wet prep 2022 023 [facility] ([facility]), [address] [place], [address], 3 17:17:14 Referral None recorded. Procedures None recorded. Surgeries None recorded. Imaging None recorded. Medication Orders metronida zole 500 mg tablet 2022 023 [facility], [address], [place], [address], 3 17:15:21 Patient TargetsNo targets recorded. Patient InstructionsNo instructions recorded. Reason for Referral None Reported. Results Created Date Observation Date Name Description Value Unit Range Abnormal Flag Note LastModifiedBy Organization Detail LastModifiedTime 06/23/20 23 06/27/2023 THINP REP TIS PAP AND HPV MRNA E6/E7 clinical information: normal PELVI C PAIN Not Available [employer] [facility] [facility] [address], [place], [address], 06/27/2023 11:36:36 06/23/20 23 06/27/2023 THINP REP TIS PAP AND HPV MRNA E6/E7 LMP: normal NONE GIVEN Not Available [address], [address], 06/27/2023 11:36:36 06/23/20 23 06/27/2023 THINP REP TIS PAP AND HPV MRNA E6/E7 prev. Pap: normal NONE GIVEN Not Available [address], [address], 06/27/2023 11:36:36 06/23/20 23 06/27/2023 THINP REP TIS PAP AND HPV MRNA E6/E7 prev. BX: normal NONE GIVEN Not Available [address], [address], 06/27/2023 11:36:36 06/23/20 23 06/27/2023 THINP REP TIS PAP AND HPV MRNA E6/E7 source: normal Cervi x, Endoc ervix Not Available [address], [address], 06/27/2023 11:36:36 06/23/20 23 06/27/2023 THINP REP TIS PAP AND HPV MRNA E6/E7 statement of adequacy: normal Satis facto ry for evalu ation . Endoc ervic al/tr ansfo rmati on zone compo nent absen t. Age and/o r menst rual statu s not provi ded Not Available [address] [place], [address], 06/27/2023 11:36:36 06/23/20 23 06/27/2023 THINP REP TIS PAP AND HPV MRNA E6/E7 interpretati on/result: normal Cytol ogy Resul ts: Negat jose f for intra epith elial lesio n or malig tonja . Not Available [address] [place], [address], 06/27/2023 11:36:36 06/23/20 23 06/27/2023 THINP REP TIS PAP AND HPV MRNA E6/E7 comment: normal This Pap test has been evalu ated with [employer] . Not Available [address] [address] [place], [address], 06/27/2023 11:36:36 06/23/20 23 06/27/2023 THINP REP TIS PAP AND HPV MRNA E6/E7 cytotechnolo gist: normal LMT, CT( CP) CT scree bernabe locat ion: [facility] [address] [place] [address] Not Available [address] [address] [place], [address], 06/27/2023 11:36:36 06/23/20 23 06/27/2023 THINP REP TIS PAP AND HPV MRNA E6/E7 comment EXPLA NATOR Y NOTE: The Pap is a scree bernabe test for cervi ramy cance r. It is not a diagn ostic test and is subje ct to false negat jose f and false posit jose f resul ts. It is most relia ble when a satis facto ry sampl e, regul kip obtai renetta, is submi tted with relev ant clini ramy findi ngs and histo ry, and when the Pap resul t is evalu ated along with histo meerald and curre nt clini ramy infor matio n. Not Available [address] [address] [place], [address], 06/27/2023 11:36:36 06/23/20 23 06/27/2023 THINP REP TIS PAP AND HPV MRNA E6/E7 HPV MRNA E6/E7 Not Detect ed not detect ed normal Metho dolog y: Trans cript ion-M ediat ed Ampli ficat ion This assay detec ts E6/E7 viral messe nger RNA (mRNA ) from 14 high- risk HPV types (16,1 8,31, 33,35 ,39,4 5,51, 52,56 ,58,5 9,66, 68). Cervi ramy sourc es are requi red for HPV testi ng. If a vagin al sourc e from a patie nt who has had a total hyste recto my with remov al of cervi x was submi tted, pleas e conta ct the testi ng labor atory for alter nativ e testi ng optio ns. For addit ional infor benjamin almendarez e refer to http: //[facility] lillie thompson.porfirio stdia gnost ics.c om/fa q/FAQ 129v1 (This link if provi ded for infor demetria thompson/ educa alexis l purpo ses only. ) Not Available [facility] [address] [place], [address], 06/27/2023 11:36:36 06/23/20 23 06/23/2023 daniel wet prep Whiff negati ve Not Available [facility] ([facility]) [address] [place] [address], [address], 06/23/2023 17:05:11 06/23/20 23 06/23/2023 daniel wet prep Epi 50-60 Not Available [facility] ([facility]) [address] [place] [address], [address], 06/23/2023 17:05:11 06/23/20 23 06/23/2023 daniel wet prep WBC 8-10 Not Available [facility] ([facility]) [address] [place] [address], [address], 06/23/2023 17:05:11 06/23/20 23 06/23/2023 daniel wet prep RBC 1-2 Not Available [facility] ([facility]) [address] [place] [address], [address], 06/23/2023 17:05:11 06/23/20 23 06/23/2023 daniel wet prep Bacteria 2++ MIXED SARAI Not Available [facility] ([facility]) [address] [place] [address], [address], 06/23/2023 17:05:11 06/23/20 23 06/23/2023 daniel wet prep Fungus NON SEEN Not Available [facility] ([facility]) [address] [place], [address], 06/23/2023 17:05:11 06/23/20 23 06/23/2023 daniel wet prep Clue Cells negati ve Not Available [facility] ([facility]) [address] [place], [address], 06/23/2023 17:05:11 06/23/20 23 06/23/2023 daniel wet prep Other NEG Not Available [facility] ([facility]) [address] [place], [address], 06/23/2023 17:05:11 Result Notes None recorded. 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 3 17:03:18 Problem Notes None recorded. Medical Equipment None Reported. Allergies No known drug allergies Medications Name Sig Start Date Stop Date Status Note LastModified by Organization Details LastModified Time metronida zole 500 mg tablet Take 1 tablet twice a day by oral route for 7 days. 2022 active Not Available Not Available Not Avai lable ferrous gluconate 06/23 completed 0; Recorded 2 9:41AM by Tito Hewitt, Office Visit; Not Available Not Available Not Available Nexplanon 68 mg subdermal implant 2021 active 60076; Recorded 2 9:43AM by Tito Hewitt (Authoriz ed through Stephanie Bobo MD), Office Visit; Refill Quantity: 0; Not Available Not Available Not Available Vitals Date Recorded Body height Body mass index (BMI) Body weight Oxygen saturation Heart rate Systolic And Diastolic Provider Name and Address Organization Details Last Updated DateTime 3 165.1 cm 34.1 kg/m2 36467.4 4 g 98 % 86 /min 130/82 mm[Hg] KATHERINE MACE [facility] 3 16:27:04 Social History None recorded. Functional Status Question Answer Note LastModified by Organizat ion Details LastModified Time Do you use any illicit or recreational drugs? No [email or web address] Information not available 06/23/2023 What is your level of alcohol consumption? None [email or web address] Information not available 06/23/2023 Mental Status None recorded. Family History Nothing Reported. Medical History No medical history recorded. Gynecological HistoryNo gynecological history recorded. Obstetrics History GPAL:G 0 P 0 0 0 0 Past Encounters Encounter ID Performer Location Encounter Start Date Encounter Closed Date Diagnosis/Indication Diagnosis SNOMED-CT Code Diagnosis ICD10 Code Diagnosis IMO Codes Diagnosis Note [id number] Jose San MD [facility] ([facility]) [address] [place] [address] 06/23/2023 16:09:57 06/23/2023 18:38:49 Abdominal pain 91382592 R10.9 Chronic pe lvic pain of female 667734527 R10.2 Gynecologi c examination 36003161 Z01.419 Active or passive immunization 554309290 Z23 Adult heal th examination 724834216 Z00.01 Health Concerns Section Related Observation LastModified by Organization Detai ls LastModified Time None Recorded Concern Status LastModified by Organization Details LastModified Time None Recorded Advance Directives Directive None Recorded Payers Insurance Date Sequence Insurance Name Policy Number Policy Clayton Covered Member ID Clayton Member ID Guarantor Name 06/29/2023 1 [facility] (MEDICAID REPLACEMENT - HMO) TREY Pizano [id number] Alma Delia Pizano Notes Date Note Type Note Provider Name and Address Organization Details Recorded Time 06/23/2023 text/html Abdominal PainRe ported by PatientAbdominal PainFor quality, patient reportscramping,aching , anddull. For location, patient reportsrlqandllq. For severity, patient reportsmoderate. For duration, patient reportsconstant. For associated symptoms, patient reportsno nausea,no vomiting,no diarrhea,no constipation, andnormal appetite. Jose San MD [address] [place] [address], [phone], [facility], Samuel 06/23/2023 17:16:09 OBGyn Episode No OBEpisode recorded.
== END 2025-10-27 18:54 | disposition home or self-care (01) ==
PROVIDERS: Emergency Provider Physician Assistant; PCP Nurse Practitioner Family
DX: R55 Syncope and collapse (principal); R51.9 Headache, unspecified
CPT/HCPCS: 36415; 70450; 71045; 80053; 80306; 81001; 84703; 85025; 93005; 96374; 96375; 99285; J0131; J1885